=== PATIENT | female | born 1955 | race African-American/Black ===

== ENCOUNTER 2017-02-24 13:21 | Emergency (ER) | payer MEDICAID, SELFPAY ==
[~2017-02-24] VITALS: Ht 162.6 cm; Wt 54.0 kg
[~2017-02-24 13:21] MED LIST: ACET-784 PO; AMLO-512 PO; ASPI1CPM8 PO; BISA5TAB12 PO; FAMO-136 PO; HEP5KI SQ; HYDR-3965 PO; LEVE100S7 PO; LISI-622 PO; LORA2I IM; METO25 PO; MOM30 PO; PHENY100 PO; PRAV40 PO; VITAD400 PO
[2017-02-24 15:23] LABS: BASOPHILS # (AUTO) 0.03 K/uL (0.00-0.20); BASOPHILS % (AUTO) 0.4 % (0.0-2.0); EOSINOPHILS # (AUTO) 0.03 K/uL (0.00-0.70); EOSINOPHILS % (AUTO) 0.39 % (1.0-6.0); HEMATOCRIT 35.3 % (36-46); HEMOGLOBIN 11.8 g/dL (12.0-16.0); LYMPHOCYTES # (AUTO) 1.5 K/uL (1.0-4.8); LYMPHOCYTES % (AUTO) 21.2 % (22.0-44.0); MEAN CORPUSCULAR HEMOGLOBIN 31.4 pg (26.0-34.0); MEAN CORPUSCULAR HGB CONC 33.5 G/dL (31.0-37.0); MEAN CORPUSCULAR VOLUME 94 fL (80-100); MONOCYTES # (AUTO) 0.6 K/uL (0.1-1.0); NEUTROPHILS # (AUTO) 4.9 K/uL (1.8-7.7); PLATELET COUNT (AUTO) 309 K/uL (150-450); RED BLOOD CELL COUNT(AUTO) 3.77 MIL/uL (4.00-5.20); RED CELL DISTRIBUTION WIDTH 14.4 % (11.5-14.5); WHITE BLOOD COUNT (AUTO) 7.1 K/uL (4.5-11.0)
[2017-02-24 15:41] LABS: ANION GAP 11 mmol/L (8-16); CALCIUM, TOTAL 10.4 mg/dL (8.8-10.5); CARBON DIOXIDE 25 mmol/L (22-29); CHLORIDE 108 mmol/L (98-107); CREATININE 1.01 mg/dL (0.60-1.30); GLOMERULAR FILTR. RATE CALC > 60 mL/min (>60); POTASSIUM 5.1 mmol/L (3.5-5.1); SODIUM SERUM 144 mmol/L (136-145); UREA NITROGEN, BLOOD 23 mg/dL (7-18)
[2017-02-24 15:53] LABS: ALANINE AMINOTRANSFERASE 24 U/L (12-78); ALBUMIN 3.8 g/dL (3.4-5.0); ASPARTATE AMINOTRANSFERASE 22 U/L (15-37); BILIRUBIN,TOTAL 0.1 mg/dL (0.1-1.0); TOTAL PROTEIN, SERUM 8.2 g/dL (6.4-8.2)
[2017-02-24 17:39] LABS: APPEARANCE,URINE CLEAR (CLEAR); GLUCOSE, URINE (UA) NEGATIVE (NEGATIVE); KETONES,URINE NEGATIVE (NEGATIVE); LEUKOCYTE ESTERASE ,URINE NEGATIVE (NEGATIVE); OCCULT BLOOD,URINE NEGATIVE (NEGATIVE); PROTEIN,URINE NEGATIVE (NEGATIVE)
[2017-02-24 17:45] LABS: RBC,URINE 0-2 /HPF (0-2); SQUAMOUS EPITHELIAL CELL,UR Few /LPF (None Seen); WBC,URINE 0-2 /HPF (0-5)
[2017-02-24] MEDS ORDERED: LevETIRAcetam 1,000 MG in DEXTROSE 5%-WATER 100 ML IV ONE (20:00)
[2017-02-25 00:34] VITALS: BP 123/82
== END 2017-02-25 00:36 | disposition home or self-care (01) ==
LOC: EMS 13:22
DX: G40.909 Epilepsy, unspecified, not intractable, without status epilepticus (principal); F03.90 Unspecified dementia, unspecified severity, without behavioral disturbance, psychotic disturbance, mood disturbance, and anxiety; I10 Essential (primary) hypertension; E78.00 Pure hypercholesterolemia, unspecified; K21.9 Gastro-esophageal reflux disease without esophagitis; Z86.73 Personal history of transient ischemic attack (TIA), and cerebral infarction without residual deficits; F20.9 Schizophrenia, unspecified; Z79.82 Long term (current) use of aspirin
CPT/HCPCS: 36415; 51702; 70450; 71010; 80053; 80185; 81001; 85025; 93005; 96365; 99291; J0712; J7060

== ENCOUNTER 2017-04-16 12:46 | Emergency (ER) | payer MEDICAID ==
[~2017-04-16] VITALS: Ht 162.6 cm; Wt 50.0 kg
[2017-04-16] MEDS ORDERED: SIMV-259 PO (13:04)
[2017-04-16 13:30] LABS: BASOPHILS % (AUTO) 0.6 % (0.0-2.0); EOSINOPHILS % (AUTO) 1.5 % (1.0-6.0); HEMATOCRIT 39.3 % (36-46); HEMOGLOBIN 12.3 g/dL (12.0-16.0); LYMPHOCYTES # (AUTO) 1.6 K/uL (1.0-4.8); LYMPHOCYTES % (AUTO) 40.1 % (22.0-44.0); MEAN CORPUSCULAR HEMOGLOBIN 30.2 pg (26.0-34.0); MEAN CORPUSCULAR HGB CONC 31.4 G/dL (31.0-37.0); MEAN CORPUSCULAR VOLUME 96 fL (80-100); MONOCYTES # (AUTO) 0.3 K/uL (0.1-1.0); MONOCYTES % (AUTO) 8.1 % (2.0-9.0); NEUTROPHILS % (AUTO) 49.7 % (40.0-70.0); PLATELET COUNT (AUTO) 313 K/uL (150-450); RED BLOOD CELL COUNT(AUTO) 4.09 MIL/uL (4.00-5.20); RED CELL DISTRIBUTION WIDTH 14.1 % (11.5-14.5); WHITE BLOOD COUNT (AUTO) 4.1 K/uL (4.5-11.0)
[2017-04-16 13:45] LABS: ANION GAP 11 mmol/L (8-16); CALCIUM, TOTAL 9.7 mg/dL (8.8-10.5); CARBON DIOXIDE 27 mmol/L (22-29); CHLORIDE 103 mmol/L (98-107); CREATININE 1.31 mg/dL (0.60-1.30); GLOMERULAR FILTR. RATE CALC 50 mL/min (>60); POTASSIUM 4.1 mmol/L (3.5-5.1); SODIUM SERUM 141 mmol/L (136-145); UREA NITROGEN, BLOOD 25 mg/dL (7-18)
[2017-04-16 13:47] LABS: ADD UA MICROSCOPIC YES; APPEARANCE,URINE CLOUDY (CLEAR); GLUCOSE, URINE (UA) NEGATIVE (NEGATIVE); KETONES,URINE NEGATIVE (NEGATIVE); LEUKOCYTE ESTERASE ,URINE SMALL (NEGATIVE); OCCULT BLOOD,URINE NEGATIVE (NEGATIVE); PROTEIN,URINE NEGATIVE (NEGATIVE)
[2017-04-16 13:48] LABS: ALANINE AMINOTRANSFERASE 26 U/L (12-78); ALBUMIN 4.1 g/dL (3.4-5.0); ASPARTATE AMINOTRANSFERASE 15 U/L (15-37); BILIRUBIN,TOTAL 0.2 mg/dL (0.1-1.0); TOTAL PROTEIN, SERUM 8.4 g/dL (6.4-8.2); VALPROIC ACID < 3 mcg/mL (50-100)
[2017-04-16 13:50] LABS: RBC,URINE None Seen /HPF (0-2)
[2017-04-16 13:51] LABS: SQUAMOUS EPITHELIAL CELL,UR Moderate /LPF (None Seen)
[2017-04-16] MEDS ORDERED: PHENYTOIN SODIUM 100 MG in SODIUM CHLORIDE 0.9% 100 ML IV ONE (14:45)
[2017-04-16] MEDS ORDERED: LevETIRAcetam 1,000 MG in DEXTROSE 5%-WATER 100 ML IV ONE (14:45)
[2017-04-16 18:25] VITALS: BP 112/81
== END 2017-04-16 18:29 | disposition home or self-care (01) ==
LOC: EMS 12:51
DX: G40.89 Other seizures (principal); I10 Essential (primary) hypertension; E78.00 Pure hypercholesterolemia, unspecified; K21.9 Gastro-esophageal reflux disease without esophagitis
CPT/HCPCS: 36415; 51702; 70450; 80053; 80164; 80185; 81001; 82962; 85025; 87077; 87086; 87186; 93005; 96365; 96366; 96368; 99285; J0712; J1165; J7050; J7060

== ENCOUNTER 2017-09-30 05:48 | Inpatient (IN) | payer MEDICAID ==
[~2017-09-30] VITALS: Ht 157.5 cm; Wt 49.7 kg
[~2017-09-30 05:48] MED LIST changes: -PRAV40 PO; +PRAV40TA4 PO; +SIMV-259 PO
[2017-09-30] MEDS ORDERED: DSS100 PO (05:55)
[2017-09-30] MEDS ORDERED: LORazepam 2 MG/ML VIAL ONE (06:21)
[2017-09-30 06:30] LABS: EOSINOPHILS % (AUTO) 0.4 % (1.0-6.0); HEMATOCRIT 38.3 % (36-46); LYMPHOCYTES # (AUTO) 0.9 K/uL (1.0-4.8); LYMPHOCYTES % (AUTO) 28.9 % (22.0-44.0); MEAN CORPUSCULAR HEMOGLOBIN 32.1 pg (26.0-34.0); MEAN CORPUSCULAR VOLUME 94 fL (80-100); MONOCYTES # (AUTO) 0.2 K/uL (0.1-1.0); MONOCYTES % (AUTO) 7.1 % (2.0-9.0); NEUTROPHILS # (AUTO) 2.1 K/uL (1.8-7.7); NEUTROPHILS % (AUTO) 62.6 % (40.0-70.0); PLATELET COUNT (AUTO) 307 K/uL (150-450); RED BLOOD CELL COUNT(AUTO) 4.05 MIL/uL (4.00-5.20)
[2017-09-30] MEDS ORDERED: LORazepam 2 MG/ML VIAL IVP ONE ×2 (06:30→07:45)
[2017-09-30 06:41] LABS: ANION GAP 6 mmol/L (8-16); CALCIUM, TOTAL 9.2 mg/dL (8.8-10.5); CARBON DIOXIDE 27 mmol/L (22-29); CHLORIDE 103 mmol/L (98-107); GLOMERULAR FILTR. RATE CALC > 60 mL/min (>60); GLUCOSE,RANDOM 101 mg/dL (70-110); POTASSIUM 5.2 mmol/L (3.5-5.1); SODIUM SERUM 136 mmol/L (136-145); UREA NITROGEN, BLOOD 18 mg/dL (7-18)
[2017-09-30 06:47] LABS: ALANINE AMINOTRANSFERASE 29 U/L (12-78); ALKALINE PHOSPHATASE 88 U/L (46-116); ASPARTATE AMINOTRANSFERASE 33 U/L (15-37); BILIRUBIN,TOTAL 0.3 mg/dL (0.1-1.0); PHENYTOIN (DILANTIN) 18.9 mcg/mL (10.0-20.0); TOTAL PROTEIN, SERUM 8.4 g/dL (6.4-8.2)
[2017-09-30 06:51] LABS: VALPROIC ACID < 3 mcg/mL (50-100)
[2017-09-30 06:59] LABS: AMPHET/METH SCREEN,URINE NEGATIVE (NEGATIVE); BARBITURATE SCREEN, URINE NEGATIVE (NEGATIVE); BENZODIAZEPINES SCREEN,URINE POSITIVE (NEGATIVE); CANNABINOID SCREEN,URINE NEGATIVE (NEGATIVE); COCAINE SCREEN,URINE NEGATIVE (NEGATIVE); METHADONE SCREEN, URINE NEGATIVE (NEGATIVE); OPIATE SCREEN,URINE NEGATIVE (NEGATIVE)
[2017-09-30 07:02] LABS: PHENCYCLIDINE SCREEN,URINE NEGATIVE (NEGATIVE)
[2017-09-30 07:03] LABS: APPEARANCE,URINE CLEAR (CLEAR); BILIRUBIN,URINE NEGATIVE (NEGATIVE); GLUCOSE, URINE (UA) NEGATIVE (NEGATIVE); KETONES,URINE NEGATIVE (NEGATIVE); LEUKOCYTE ESTERASE ,URINE NEGATIVE (NEGATIVE); NITRATE,URINE NEGATIVE (NEGATIVE); OCCULT BLOOD,URINE NEGATIVE (NEGATIVE); PH,URINE 5.5 (5.0-8.0); PROTEIN,URINE NEGATIVE (NEGATIVE); UROBILINOGEN,URINE 0.2 mg/dL (<=1.0)
[2017-09-30 07:17] LABS: BACTERIA,URINE Rare /HPF (None Seen); RBC,URINE None Seen /HPF (0-2); SQUAMOUS EPITHELIAL CELL,UR Few /LPF (None Seen); WBC,URINE 0-2 /HPF (0-5)
[2017-09-30] MEDS ORDERED: METOPROLOL TARTRATE 5 MG/5 ML VIAL IVP ONE (07:45)
[2017-09-30] MEDS ORDERED: VALPROATE SODIUM 750 MG in DEXTROSE 5%-WATER 100 ML IV ONE (07:45)
[2017-09-30] MEDS ORDERED: LORazepam 2 MG/ML VIAL IVP PRN (09:45)
[2017-09-30] MEDS ORDERED: OxyCODONE HCL/ACETAMINOPHEN 5-325 MG TABLET PO PRN (09:45)
[2017-09-30] MEDS ORDERED: MAGNESIUM HYDROXIDE SUSPENSION 30 ML UDCUP PO PRN (09:45)
[2017-09-30] MEDS ORDERED: ACETAMINOPHEN 325 MG TABLET PO PRN (09:45)
[2017-09-30] MEDS ORDERED: ALBUTEROL SULFATE 2.5 MG/0.5 ML NEB SOLUTION NEB PRN (09:45)
[2017-09-30] MEDS ORDERED: DEXTROSE 5%-0.45% SODIUM CHL 1,000 ML IV ONE (10:00)
[2017-09-30] MEDS: LevETIRAcetam 1,000 MG in DEXTROSE 5%-WATER 100 ML IV SCH ×2 (10:03→22:04)
[2017-09-30 14:15] VITALS: BP 127/90
[2017-09-30 15:01] VITALS: BP 129/92
[2017-09-30] MEDS ORDERED: HEPARIN SODIUM,PORCINE 5,000 UNITS/ML VIAL SQ SCH (16:00)
[2017-09-30] MEDS: HEPARIN SODIUM,PORCINE 5,000 UNITS/ML VIAL SQ SCH ×2 (16:17→20:45)
[2017-09-30 19:49] VITALS: BP 123/70
[2017-09-30] MEDS: ASPIRIN/DIPYRIDAMOLE ER 25/200 MG ER CAPSULE PO SCH (20:45)
[2017-09-30] MEDS: ATORVASTATIN CALCIUM 20 MG TABLET PO SCH (20:45)
[2017-09-30] MEDS: PHENYTOIN 100 MG/4 ML SUSPENSION UDCUP PO SCH (20:45)
[2017-09-30] MEDS: DOCUSATE SODIUM 100 MG CAPSULE PO SCH (20:45)
[2017-09-30 23:55] VITALS: BP 106/73
[2017-10-01 04:42] VITALS: BP 123/91
[2017-10-01 07:15] LABS: ANION GAP 7 mmol/L (8-16); BASOPHILS % (AUTO) 0.5 % (0.0-2.0); CALCIUM, TOTAL 8.7 mg/dL (8.8-10.5); CARBON DIOXIDE 26 mmol/L (22-29); CHLORIDE 102 mmol/L (98-107); CREATININE 1.03 mg/dL (0.60-1.30); EOSINOPHILS % (AUTO) 1.1 % (1.0-6.0); GLOMERULAR FILTR. RATE CALC > 60 mL/min (>60); GLUCOSE,RANDOM 111 mg/dL (70-110); HEMATOCRIT 33.2 % (36-46); HEMOGLOBIN 11.2 g/dL (12.0-16.0); LYMPHOCYTES # (AUTO) 1.2 K/uL (1.0-4.8); MEAN CORPUSCULAR HEMOGLOBIN 31.9 pg (26.0-34.0); MEAN CORPUSCULAR HGB CONC 33.6 G/dL (31.0-37.0); MEAN CORPUSCULAR VOLUME 95 fL (80-100); MONOCYTES # (AUTO) 0.6 K/uL (0.1-1.0); MONOCYTES % (AUTO) 12.3 % (2.0-9.0); NEUTROPHILS % (AUTO) 61.1 % (40.0-70.0); PLATELET COUNT (AUTO) 312 K/uL (150-450); POTASSIUM 3.6 mmol/L (3.5-5.1); SODIUM SERUM 135 mmol/L (136-145); UREA NITROGEN, BLOOD 15 mg/dL (7-18)
[2017-10-01 07:45] VITALS: BP 144/89
[2017-10-01] MEDS: PANTOPRAZOLE SODIUM 40 MG/VIAL IVP SCH (08:15)
[2017-10-01] MEDS: HEPARIN SODIUM,PORCINE 5,000 UNITS/ML VIAL SQ SCH ×2 (08:15→20:39)
[2017-10-01] MEDS: DOCUSATE SODIUM 100 MG CAPSULE PO SCH ×2 (08:15→20:39)
[2017-10-01] MEDS: ASPIRIN/DIPYRIDAMOLE ER 25/200 MG ER CAPSULE PO SCH ×2 (08:15→20:39)
[2017-10-01] MEDS: LevETIRAcetam 1,000 MG in DEXTROSE 5%-WATER 100 ML IV SCH ×2 (10:12→22:40)
[2017-10-01 11:43] VITALS: BP 138/78
[2017-10-01] MEDS ORDERED: LEVE500T53 PO (13:19)
[2017-10-01] MEDS ORDERED: ASPIRIN 81 MG CHEWABLE TABLET PO SCH (13:30)
[2017-10-01 15:37] VITALS: BP 113/72
[2017-10-01 19:34] VITALS: BP 94/62
[2017-10-01] MEDS: PHENYTOIN 100 MG/4 ML SUSPENSION UDCUP PO SCH (20:39)
[2017-10-01] MEDS: ATORVASTATIN CALCIUM 20 MG TABLET PO SCH (20:40)
[2017-10-01] MEDS ORDERED: ATORVASTATIN CALCIUM 20 MG TABLET PO SCH (21:00)
[2017-10-01 23:33] VITALS: BP 106/69
[2017-10-02 04:31] VITALS: BP 108/56
[2017-10-02 07:24] VITALS: BP 115/74
[2017-10-02] MEDS: DOCUSATE SODIUM 100 MG CAPSULE PO SCH (08:58)
[2017-10-02] MEDS: ASPIRIN/DIPYRIDAMOLE ER 25/200 MG ER CAPSULE PO SCH (08:58)
[2017-10-02] MEDS: PANTOPRAZOLE SODIUM 40 MG/VIAL IVP SCH (08:58)
[2017-10-02] MEDS: HEPARIN SODIUM,PORCINE 5,000 UNITS/ML VIAL SQ SCH (08:58)
[2017-10-02] MEDS: LevETIRAcetam 1,000 MG in DEXTROSE 5%-WATER 100 ML IV SCH (09:27)
[2017-10-02 11:42] VITALS: BP 100/73
== END 2017-10-02 15:55 | DRG 53 ==
LOC: EMS 05:50 → 5S 13:05 → UNDOADMIN 13:05 → 5S 13:23
PROVIDERS: ADMIT Internal Medicine; ATTEND Internal Medicine
DX: G40.909 Epilepsy, unspecified, not intractable, without status epilepticus (principal); E44.0 Moderate protein-calorie malnutrition; F03.90 Unspecified dementia, unspecified severity, without behavioral disturbance, psychotic disturbance, mood disturbance, and anxiety; F20.9 Schizophrenia, unspecified; I69.354 Hemiplegia and hemiparesis following cerebral infarction affecting left non-dominant side; F17.210 Nicotine dependence, cigarettes, uncomplicated; I10 Essential (primary) hypertension; K21.9 Gastro-esophageal reflux disease without esophagitis; Z86.718 Personal history of other venous thrombosis and embolism; Z68.20 Body mass index [BMI] 20.0-20.9, adult; Z79.82 Long term (current) use of aspirin; Z82.49 Family history of ischemic heart disease and other diseases of the circulatory system; Z74.01 Bed confinement status
CPT/HCPCS: 51702; 70450; 83605; 87081; 93005; 96365; 96366; 96375; 96376; 97162; 97530; 99291; C9113; J0712; J1644; J2060; J3490; J7060

== ENCOUNTER 2017-11-09 13:23 | Inpatient (IN) | payer MEDICAID ==
[~2017-11-09] VITALS: Ht 167.6 cm; Wt 47.0 kg
[~2017-11-09 13:23] MED LIST changes: -AMLO-512 PO; +DSS100 PO; -LEVE100S7 PO; +LEVE500T53 PO; -LISI-622 PO; -METO25 PO
[2017-11-09] MEDS ORDERED: PHENYTOIN SODIUM 1,000 MG in SODIUM CHLORIDE 0.9% 150 ML IV ONE (13:30)
[2017-11-09] MEDS ORDERED: IPRA3AMP4 IH (13:47)
[2017-11-09] MEDS ORDERED: PERCT PO (13:47)
[2017-11-09 13:49] LABS: ABG A-A DIFF O2 206.6 mmHg (10-20.0); ABG BASE EXCESS 1.6 mmol/L (-2.0-3.0); ABG HCO3 25.6 mmol/L (22.0-26.0); ABG PCO2 47 mmHg (35-45); ABG PH 7.377 (7.35-7.450); TEMPERATURE, FAHRENHEIT, BG 98.6 FAHREN (96.0-98.6)
[2017-11-09 13:51] LABS: ALLEN TEST, BLOOD GAS Positive
[2017-11-09] MEDS ORDERED: SODIUM CHLORIDE 0.9% 1,000 ML IV ONE ×2 (14:07→14:30)
[2017-11-09] MEDS ORDERED: LORazepam 2 MG/ML VIAL ONE (14:10)
[2017-11-09 14:21] LABS: BASOPHILS # (AUTO) 0.02 K/uL (0.00-0.20); BASOPHILS % (AUTO) 0.4 % (0.0-2.0); EOSINOPHILS # (AUTO) 0.05 K/uL (0.00-0.70); EOSINOPHILS % (AUTO) 0.99 % (1.0-6.0); HEMATOCRIT 40.1 % (36-46); LYMPHOCYTES # (AUTO) 1.1 K/uL (1.0-4.8); LYMPHOCYTES % (AUTO) 19.8 % (22.0-44.0); MEAN CORPUSCULAR HEMOGLOBIN 31.7 pg (26.0-34.0); MEAN CORPUSCULAR HGB CONC 32.4 G/dL (31.0-37.0); MEAN CORPUSCULAR VOLUME 98 fL (80-100); MONOCYTES # (AUTO) 0.5 K/uL (0.1-1.0); MONOCYTES % (AUTO) 8.9 % (2.0-9.0); NEUTROPHILS # (AUTO) 3.9 K/uL (1.8-7.7); PLATELET COUNT (AUTO) 268 K/uL (150-450); RED BLOOD CELL COUNT(AUTO) 4.09 MIL/uL (4.00-5.20); RED CELL DISTRIBUTION WIDTH 14.1 % (11.5-14.5); WHITE BLOOD COUNT (AUTO) 5.5 K/uL (4.5-11.0)
[2017-11-09 14:33] LABS: ANION GAP 9 mmol/L (8-16); CALCIUM, TOTAL 9.5 mg/dL (8.8-10.5); CARBON DIOXIDE 27 mmol/L (22-29); CHLORIDE 106 mmol/L (98-107); CREATININE 1.14 mg/dL (0.60-1.30); GLOMERULAR FILTR. RATE CALC 58 mL/min (>60); POTASSIUM 3.9 mmol/L (3.5-5.1); SODIUM SERUM 142 mmol/L (136-145); UREA NITROGEN, BLOOD 23 mg/dL (7-18)
[2017-11-09 14:42] LABS: ALANINE AMINOTRANSFERASE 32 U/L (12-78); ALBUMIN 3.7 g/dL (3.4-5.0); ASPARTATE AMINOTRANSFERASE 22 U/L (15-37); BILIRUBIN,TOTAL 0.2 mg/dL (0.1-1.0); TOTAL PROTEIN, SERUM 8.4 g/dL (6.4-8.2); VALPROIC ACID 4 mcg/mL (50-100)
[2017-11-09] MEDS ORDERED: LORazepam 2 MG/ML VIAL IVP ONE (14:45)
[2017-11-09] MEDS ORDERED: LEVOFLOXACIN 750 MG/D5% WATER 150 ML IV ONE (15:15)
[2017-11-09] MEDS ORDERED: 0.9% SODIUM CHLORIDE 10 ML SYRINGE IVP PRN (17:15)
[2017-11-09] MEDS ORDERED: ONDANSETRON HCL 4 MG/2 ML VIAL IVP PRN ×2 (17:15→22:00)
[2017-11-09] MEDS ORDERED: ACETAMINOPHEN 325 MG TABLET PO PRN ×2 (17:15→22:00)
[2017-11-09] MEDS ORDERED: MORPHINE SULFATE 2 MG/ML SYRINGE IVP PRN (22:00)
[2017-11-09] MEDS ORDERED: ZOLPIDEM TARTRATE 5 MG TABLET PO PRN (22:00)
[2017-11-09] MEDS ORDERED: MAGNESIUM HYDROXIDE SUSPENSION 30 ML UDCUP PO PRN (22:00)
[2017-11-09] MEDS ORDERED: HYDROCODONE/ACETAMINOPHEN 5-325 MG TABLET PO PRN (22:00)
[2017-11-09] MEDS: LevETIRAcetam 1,000 MG in DEXTROSE 5%-WATER 100 ML IV SCH (22:00)
[2017-11-09] MEDS ORDERED: LORazepam 2 MG/ML VIAL IM PRN (22:00)
[2017-11-09] MEDS ORDERED: BISACODYL 10 MG RECTAL RECTAL SUPPOSITORY PR PRN (22:00)
[2017-11-09] MEDS ORDERED: MISC MED-CONVERTED FROM AMBULATORY (Ipratropium/Albuterol Sulfate (Ipratr-Albuterol 0.5-3 IH SCH (22:00)
[2017-11-09] MEDS ORDERED: ALBUTEROL SULFATE 2.5 MG/0.5 ML NEB SOLUTION NEB PRN (22:15)
[2017-11-09] MEDS ORDERED: IPRATROPIUM BROMIDE 0.5 MG/2.5 ML NEB SOLUTION NEB PRN (22:15)
[2017-11-10 00:32] VITALS: BP 135/87
[2017-11-10] MEDS: HEPARIN SODIUM,PORCINE 5,000 UNITS/ML VIAL SQ SCH ×4 (00:55→23:51)
[2017-11-10] MEDS ORDERED: ASPI1CPM8 PO (01:49)
[2017-11-10] MEDS ORDERED: ATOR20TA86 PO (01:56)
[2017-11-10] MEDS ORDERED: MULT-248 PO (01:56)
[2017-11-10] MEDS ORDERED: BISA10S PR (01:56)
[2017-11-10 04:38] VITALS: BP 121/86
[2017-11-10 06:14] LABS: BASOPHILS % (AUTO) 0.7 % (0.0-2.0); EOSINOPHILS % (AUTO) 0.8 % (1.0-6.0); HEMATOCRIT 36.5 % (36-46); HEMOGLOBIN 12.3 g/dL (12.0-16.0); LYMPHOCYTES # (AUTO) 1.4 K/uL (1.0-4.8); LYMPHOCYTES % (AUTO) 25.4 % (22.0-44.0); MEAN CORPUSCULAR HEMOGLOBIN 32.6 pg (26.0-34.0); MEAN CORPUSCULAR HGB CONC 33.8 G/dL (31.0-37.0); MEAN CORPUSCULAR VOLUME 96 fL (80-100); MONOCYTES # (AUTO) 0.5 K/uL (0.1-1.0); MONOCYTES % (AUTO) 10.2 % (2.0-9.0); NEUTROPHILS # (AUTO) 3.4 K/uL (1.8-7.7); NEUTROPHILS % (AUTO) 62.9 % (40.0-70.0); PLATELET COUNT (AUTO) 232 K/uL (150-450); RED BLOOD CELL COUNT(AUTO) 3.79 MIL/uL (4.00-5.20); RED CELL DISTRIBUTION WIDTH 13.9 % (11.5-14.5); WHITE BLOOD COUNT (AUTO) 5.4 K/uL (4.5-11.0)
[2017-11-10 06:46] LABS: ALANINE AMINOTRANSFERASE 27 U/L (12-78); ALBUMIN 3.2 g/dL (3.4-5.0); ANION GAP 12 mmol/L (8-16); ASPARTATE AMINOTRANSFERASE 23 U/L (15-37); BILIRUBIN,TOTAL 0.2 mg/dL (0.1-1.0); CALCIUM, TOTAL 8.9 mg/dL (8.8-10.5); CARBON DIOXIDE 24 mmol/L (22-29); CHLORIDE 105 mmol/L (98-107); CREATININE 1.06 mg/dL (0.60-1.30); GLOMERULAR FILTR. RATE CALC > 60 mL/min (>60); POTASSIUM 4.1 mmol/L (3.5-5.1); SODIUM SERUM 141 mmol/L (136-145); TOTAL PROTEIN, SERUM 7.4 g/dL (6.4-8.2); UREA NITROGEN, BLOOD 17 mg/dL (7-18)
[2017-11-10 07:21] VITALS: BP 150/83
[2017-11-10] MEDS: DOCUSATE SODIUM 100 MG CAPSULE PO SCH ×3 (08:24→21:46)
[2017-11-10] MEDS: PANTOPRAZOLE SODIUM 40 MG DR TABLET PO SCH ×2 (08:25→08:45)
[2017-11-10] MEDS: CHOLECALCIFEROL (VIT D3) 400 UNITS TABLET PO SCH (08:25)
[2017-11-10] MEDS ORDERED: SODIUM CHLORIDE 0.9% 100 ML ONE ×2 (10:29→21:39)
[2017-11-10] MEDS: LevETIRAcetam 1,000 MG in DEXTROSE 5%-WATER 100 ML IV SCH (10:33)
[2017-11-10 11:17] VITALS: BP 138/94
[2017-11-10] MEDS ORDERED: LIDOCAINE HCL 5% TRANSDERMAL PATCH TD SCH (12:00)
[2017-11-10 15:42] VITALS: BP 142/89
[2017-11-10 20:13] VITALS: BP 121/77
[2017-11-10] MEDS ORDERED: -LIDODERM PATCH NOTE- MISC SCH ×2 (21:00)
[2017-11-10] MEDS ORDERED: ASPIRIN/DIPYRIDAMOLE ER 25/200 MG ER CAPSULE PO SCH (21:00)
[2017-11-10] MEDS: LevETIRAcetam 1,500 MG in DEXTROSE 5%-WATER 100 ML IV SCH (21:30)
[2017-11-10] MEDS: PHENYTOIN SODIUM 100 MG ER CAPSULE PO SCH (21:45)
[2017-11-10] MEDS: ASPIRIN/DIPYRIDAMOLE ER 25/200 MG ER CAPSULE PO SCH (21:45)
[2017-11-11 00:30] VITALS: BP 123/80
[2017-11-11 05:03] VITALS: BP 124/79
[2017-11-11 07:18] VITALS: BP 127/82
[2017-11-11] MEDS: HEPARIN SODIUM,PORCINE 5,000 UNITS/ML VIAL SQ SCH ×2 (08:22→15:27)
[2017-11-11] MEDS: DOCUSATE SODIUM 100 MG CAPSULE PO SCH ×2 (08:23→21:10)
[2017-11-11] MEDS: PANTOPRAZOLE SODIUM 40 MG DR TABLET PO SCH (08:23)
[2017-11-11] MEDS: ASPIRIN/DIPYRIDAMOLE ER 25/200 MG ER CAPSULE PO SCH ×2 (08:23→21:10)
[2017-11-11] MEDS: CHOLECALCIFEROL (VIT D3) 400 UNITS TABLET PO SCH (08:23)
[2017-11-11] MEDS: LevETIRAcetam 1,500 MG in DEXTROSE 5%-WATER 100 ML IV SCH ×2 (08:23→21:10)
[2017-11-11] MEDS: PHENYTOIN SODIUM 100 MG ER CAPSULE PO SCH (08:49)
[2017-11-11 11:07] VITALS: BP 135/75
[2017-11-11 15:17] VITALS: BP 124/76
[2017-11-11 20:02] VITALS: BP 119/84
[2017-11-12 00:57] VITALS: BP 123/80
[2017-11-12] MEDS: HEPARIN SODIUM,PORCINE 5,000 UNITS/ML VIAL SQ SCH ×4 (01:25→15:49)
[2017-11-12 04:53] VITALS: BP 130/86
[2017-11-12 07:33] VITALS: BP 126/73
[2017-11-12] MEDS: DOCUSATE SODIUM 100 MG CAPSULE PO SCH ×3 (09:00→21:09)
[2017-11-12] MEDS: CHOLECALCIFEROL (VIT D3) 400 UNITS TABLET PO SCH ×2 (09:00→10:19)
[2017-11-12] MEDS: PANTOPRAZOLE SODIUM 40 MG DR TABLET PO SCH ×2 (09:00→10:19)
[2017-11-12] MEDS: ASPIRIN/DIPYRIDAMOLE ER 25/200 MG ER CAPSULE PO SCH ×3 (09:00→21:09)
[2017-11-12] MEDS: LevETIRAcetam 1,500 MG in DEXTROSE 5%-WATER 100 ML IV SCH ×2 (10:18→21:09)
[2017-11-12 11:18] VITALS: BP 109/74
[2017-11-12 15:21] VITALS: BP 119/79
[2017-11-12] MEDS ORDERED: PANT40TA25 PO (18:41)
[2017-11-12] MEDS ORDERED: LEVE500T53 PO (18:41)
[2017-11-12] MEDS ORDERED: MUPI1OIN4 NS (18:42)
[2017-11-12 20:18] VITALS: BP 105/74
[2017-11-12] MEDS: PHENYTOIN SODIUM 100 MG ER CAPSULE PO SCH (21:09)
[2017-11-12] MEDS: MUPIROCIN CALCIUM 2% 22 GM OINTMENT NASAL SCH (21:09)
[2017-11-13 00:21] VITALS: BP 116/88
[2017-11-13] MEDS: HEPARIN SODIUM,PORCINE 5,000 UNITS/ML VIAL SQ SCH ×2 (01:13→08:12)
[2017-11-13 04:17] VITALS: BP 124/82
[2017-11-13 07:35] VITALS: BP 122/84
[2017-11-13] MEDS: DOCUSATE SODIUM 100 MG CAPSULE PO SCH (08:12)
[2017-11-13] MEDS: PANTOPRAZOLE SODIUM 40 MG DR TABLET PO SCH (08:12)
[2017-11-13] MEDS: MUPIROCIN CALCIUM 2% 22 GM OINTMENT NASAL SCH (08:12)
[2017-11-13] MEDS: ASPIRIN/DIPYRIDAMOLE ER 25/200 MG ER CAPSULE PO SCH (08:12)
[2017-11-13] MEDS: LevETIRAcetam 1,500 MG in DEXTROSE 5%-WATER 100 ML IV SCH (08:12)
[2017-11-13] MEDS: CHOLECALCIFEROL (VIT D3) 400 UNITS TABLET PO SCH (08:12)
== END 2017-11-13 10:00 | DRG 52 ==
LOC: EMS 13:26 → 5S 23:47
PROVIDERS: ADMIT Internal Medicine; ATTEND Internal Medicine
DX: G93.41 Metabolic encephalopathy (principal); F20.9 Schizophrenia, unspecified; F03.90 Unspecified dementia, unspecified severity, without behavioral disturbance, psychotic disturbance, mood disturbance, and anxiety; G40.901 Epilepsy, unspecified, not intractable, with status epilepticus; K21.9 Gastro-esophageal reflux disease without esophagitis; E78.00 Pure hypercholesterolemia, unspecified; I10 Essential (primary) hypertension; J98.11 Atelectasis; T42.0X5A Adverse effect of hydantoin derivatives, initial encounter; Z87.891 Personal history of nicotine dependence; Z22.322 Carrier or suspected carrier of Methicillin resistant Staphylococcus aureus
CPT/HCPCS: 70450; 82805; 87040; 87081; 92526; 92610; 93005; 96365; 96367; 96375; 99291; G0480; G0482; J0712; J1165; J1644; J1956; J2060; J7030; J7050; J7060

== ENCOUNTER 2018-04-12 09:38 | Inpatient (IN) | payer MEDICAID, SELFPAY ==
[~2018-04-12] VITALS: Ht 160 cm; Wt 42.0 kg
[~2018-04-12 09:38] MED LIST changes: +ATOR20TA86 PO; +BISA10S PR; -BISA5TAB12 PO; -FAMO-136 PO; -HYDR-3965 PO; +IPRA3AMP4 IH; -LORA2I IM; +MULT-248 PO; +MUPI1OIN4 NS; +PANT40TA25 PO; -PRAV40TA4 PO; -SIMV-259 PO
[2018-04-12] MEDS ORDERED: LevETIRAcetam 500 MG in DEXTROSE 5%-WATER 100 ML IV ONE (10:00)
[2018-04-12] MEDS ORDERED: LORazepam 2 MG/ML VIAL ONE (10:09)
[2018-04-12] MEDS ORDERED: LORazepam 2 MG/ML VIAL IVP ONE ×2 (10:15→10:45)
[2018-04-12 10:20] LABS: BASOPHILS % (AUTO) 0.4 % (0.0-2.0); EOSINOPHILS % (AUTO) 0.1 % (1.0-6.0); HEMATOCRIT 35.1 % (36-46); HEMOGLOBIN 12.1 g/dL (12.0-16.0); LYMPHOCYTES # (AUTO) 0.6 K/uL (1.0-4.8); LYMPHOCYTES % (AUTO) 6.9 % (22.0-44.0); MEAN CORPUSCULAR HEMOGLOBIN 31.4 pg (26.0-34.0); MEAN CORPUSCULAR HGB CONC 34.5 G/dL (31.0-37.0); MEAN CORPUSCULAR VOLUME 91 fL (80-100); MONOCYTES # (AUTO) 0.5 K/uL (0.1-1.0); MONOCYTES % (AUTO) 5.3 % (2.0-9.0); NEUTROPHILS # (AUTO) 8.1 K/uL (1.8-7.7); PLATELET COUNT (AUTO) 320 K/uL (150-450); RED BLOOD CELL COUNT(AUTO) 3.86 MIL/uL (4.00-5.20); RED CELL DISTRIBUTION WIDTH 13.7 % (11.5-14.5)
[2018-04-12 10:21] LABS: NEUTROPHILS % (AUTO) 87.3 % (40.0-70.0)
[2018-04-12 10:31] LABS: INR 1.1 (0.9-1.1); PROTHROMBIN TIME 11.2 SEC (9.4-11.6)
[2018-04-12 10:32] LABS: ANION GAP 6 mmol/L (8-16); CARBON DIOXIDE 29 mmol/L (22-29); CHLORIDE 103 mmol/L (98-107); CREATININE 0.93 mg/dL (0.60-1.30); GLOMERULAR FILTR. RATE CALC > 60 mL/min (>60); GLUCOSE,RANDOM 116 mg/dL (70-110); POTASSIUM 3.2 mmol/L (3.5-5.1); SODIUM SERUM 138 mmol/L (136-145); UREA NITROGEN, BLOOD 13 mg/dL (7-18)
[2018-04-12 10:42] LABS: ALANINE AMINOTRANSFERASE 39 U/L (12-78); ALBUMIN 3.3 g/dL (3.4-5.0); ALKALINE PHOSPHATASE 87 U/L (46-116); ASPARTATE AMINOTRANSFERASE 23 U/L (15-37); BILIRUBIN,TOTAL 0.2 mg/dL (0.1-1.0); CREATINE KINASE, TOTAL 65 U/L (26-192); TOTAL PROTEIN, SERUM 7.2 g/dL (6.4-8.2)
[2018-04-12 10:49] LABS: AMPHET/METH SCREEN,URINE NEGATIVE (NEGATIVE); BARBITURATE SCREEN, URINE NEGATIVE (NEGATIVE); BENZODIAZEPINES SCREEN,URINE POSITIVE (NEGATIVE); CANNABINOID SCREEN,URINE NEGATIVE (NEGATIVE); COCAINE SCREEN,URINE NEGATIVE (NEGATIVE); METHADONE SCREEN, URINE NEGATIVE (NEGATIVE); OPIATE SCREEN,URINE NEGATIVE (NEGATIVE)
[2018-04-12 10:51] LABS: B-TYPE NATRIURETIC PEPTIDE 94 pg/mL (0-100)
[2018-04-12 10:54] LABS: PHENCYCLIDINE SCREEN,URINE NEGATIVE (NEGATIVE)
[2018-04-12] MEDS ORDERED: ACETAMINOPHEN 1000 MG/ISO-OSM 100 ML IV ONE (11:30)
[2018-04-12] MEDS ORDERED: METOPROLOL TARTRATE 5 MG/5 ML VIAL IVP ONE (11:30)
[2018-04-12] MEDS ORDERED: ACETAMINOPHEN 325 MG TABLET PO PRN ×2 (11:45→17:45)
[2018-04-12] MEDS ORDERED: 0.9% SODIUM CHLORIDE 10 ML SYRINGE IVP PRN (11:45)
[2018-04-12] MEDS ORDERED: ONDANSETRON HCL 4 MG/2 ML VIAL IVP PRN ×2 (11:45→17:45)
[2018-04-12] MEDS ORDERED: SODIUM CHLORIDE 0.9% 1,000 ML IV ONE (12:00)
[2018-04-12] MEDS ORDERED: ASPI-556 PO (15:09)
[2018-04-12] MEDS ORDERED: PHEN125O3 PO (15:09)
[2018-04-12] MEDS ORDERED: LISI10TA7 PO (15:10)
[2018-04-12 16:00] VITALS: BP 134/96
[2018-04-12] MEDS ORDERED: LevETIRAcetam 500 MG in DEXTROSE 5%-WATER 100 ML IV SCH ×2 (17:30→21:00)
[2018-04-12] MEDS ORDERED: BISACODYL 10 MG RECTAL RECTAL SUPPOSITORY PR PRN ×2 (17:30→17:45)
[2018-04-12] MEDS ORDERED: LevETIRAcetam 1,000 MG in DEXTROSE 5%-WATER 100 ML IV SCH ×2 (17:30→21:00)
[2018-04-12] MEDS ORDERED: LORazepam 2 MG/ML VIAL IVP PRN (17:30)
[2018-04-12] MEDS ORDERED: MORPHINE SULFATE 2 MG/ML SYRINGE IVP PRN (17:45)
[2018-04-12] MEDS ORDERED: ALBUTEROL SULFATE 2.5 MG/0.5 ML NEB SOLUTION NEB PRN (17:45)
[2018-04-12] MEDS ORDERED: IPRATROPIUM BROMIDE 0.5 MG/2.5 ML NEB SOLUTION NEB PRN (17:45)
[2018-04-12] MEDS ORDERED: HYDROCODONE/ACETAMINOPHEN 5-325 MG TABLET PO PRN (17:45)
[2018-04-12] MEDS ORDERED: HydrALAZINE HCL 20 MG/ML VIAL IVP PRN (17:45)
[2018-04-12] MEDS ORDERED: MAGNESIUM HYDROXIDE SUSPENSION 30 ML UDCUP PO PRN (17:45)
[2018-04-12] MEDS ORDERED: ZOLPIDEM TARTRATE 5 MG TABLET PO PRN (17:45)
[2018-04-12] MEDS ORDERED: LevETIRAcetam 1,500 MG in DEXTROSE 5%-WATER 100 ML IV SCH (18:30)
[2018-04-12 20:00] VITALS: BP 142/100
[2018-04-12] MEDS: DOCUSATE SODIUM 100 MG CAPSULE PO SCH (21:00)
[2018-04-12] MEDS ORDERED: DOCUSATE SODIUM 100 MG CAPSULE PO SCH (21:00)
[2018-04-12] MEDS ORDERED: LevETIRAcetam 500 MG TABLET PO SCH (21:00)
[2018-04-12] MEDS ORDERED: PHENYTOIN SODIUM 100 MG ER CAPSULE PO SCH (21:00)
[2018-04-12] MEDS: LevETIRAcetam 1,500 MG in DEXTROSE 5%-WATER 100 ML IV SCH (21:04)
[2018-04-13] VITALS (8 sets, daily range): BP systolic 101–152; BP diastolic 69–110
[2018-04-13] MEDS: HEPARIN SODIUM,PORCINE 5,000 UNITS/ML VIAL SQ SCH ×3 (01:08→15:43)
[2018-04-13 05:29] LABS: BASOPHILS % (AUTO) 0.8 % (0.0-2.0); EOSINOPHILS % (AUTO) 0.3 % (1.0-6.0); HEMATOCRIT 38.8 % (36-46); HEMOGLOBIN 13.3 g/dL (12.0-16.0); LYMPHOCYTES # (AUTO) 1.3 K/uL (1.0-4.8); MEAN CORPUSCULAR HEMOGLOBIN 31.4 pg (26.0-34.0); MEAN CORPUSCULAR HGB CONC 34.4 G/dL (31.0-37.0); MEAN CORPUSCULAR VOLUME 91 fL (80-100); MONOCYTES # (AUTO) 0.5 K/uL (0.1-1.0); MONOCYTES % (AUTO) 8.4 % (2.0-9.0); NEUTROPHILS # (AUTO) 4.4 K/uL (1.8-7.7); NEUTROPHILS % (AUTO) 69.5 % (40.0-70.0); PLATELET COUNT (AUTO) 283 K/uL (150-450); RED BLOOD CELL COUNT(AUTO) 4.25 MIL/uL (4.00-5.20); RED CELL DISTRIBUTION WIDTH 13.4 % (11.5-14.5)
[2018-04-13 05:40] LABS: ALANINE AMINOTRANSFERASE 37 U/L (12-78); ALBUMIN 3.3 g/dL (3.4-5.0); ALKALINE PHOSPHATASE 102 U/L (46-116); ANION GAP 10 mmol/L (8-16); ASPARTATE AMINOTRANSFERASE 27 U/L (15-37); BILIRUBIN,TOTAL 0.5 mg/dL (0.1-1.0); CALCIUM, TOTAL 8.4 mg/dL (8.8-10.5); CARBON DIOXIDE 26 mmol/L (22-29); CHLORIDE 103 mmol/L (98-107); CREATININE 0.82 mg/dL (0.60-1.30); GLOMERULAR FILTR. RATE CALC > 60 mL/min (>60); GLUCOSE,RANDOM 88 mg/dL (70-110); POTASSIUM 3.8 mmol/L (3.5-5.1); SODIUM SERUM 139 mmol/L (136-145); TOTAL PROTEIN, SERUM 7.8 g/dL (6.4-8.2); UREA NITROGEN, BLOOD 12 mg/dL (7-18)
[2018-04-13] MEDS: PANTOPRAZOLE SODIUM 40 MG/VIAL IVP SCH (08:38)
[2018-04-13] MEDS: ASPIRIN 81 MG EC TABLET PO SCH (08:38)
[2018-04-13] MEDS: LevETIRAcetam 1,500 MG in DEXTROSE 5%-WATER 100 ML IV SCH ×2 (08:38→21:59)
[2018-04-13] MEDS ORDERED: SODIUM CHLORIDE 0.9% 250 ML IV ONE ×2 (08:45→22:00)
[2018-04-13] MEDS ORDERED: PANTOPRAZOLE SODIUM 40 MG DR TABLET PO SCH (09:00)
[2018-04-13] MEDS: MULTIVITAMINS WITH MINERALS, THERAPEUTIC TABLET PO SCH (09:01)
[2018-04-13] MEDS: DOCUSATE SODIUM 100 MG CAPSULE PO SCH ×2 (09:01→21:59)
[2018-04-13] MEDS: CHOLECALCIFEROL (VIT D3) 400 UNITS TABLET PO SCH (09:01)
[2018-04-13] MEDS: LISINOPRIL 10 MG TABLET PO SCH (09:01)
[2018-04-14] MEDS: HEPARIN SODIUM,PORCINE 5,000 UNITS/ML VIAL SQ SCH ×2 (00:24→08:34)
[2018-04-14 04:24] VITALS: BP 124/84
[2018-04-14 06:59] LABS: BASOPHILS % (AUTO) 0.6 % (0.0-2.0); EOSINOPHILS % (AUTO) 0.9 % (1.0-6.0); HEMOGLOBIN 13.5 g/dL (12.0-16.0); LYMPHOCYTES # (AUTO) 1.3 K/uL (1.0-4.8); LYMPHOCYTES % (AUTO) 25.7 % (22.0-44.0); MEAN CORPUSCULAR HEMOGLOBIN 31.8 pg (26.0-34.0); MEAN CORPUSCULAR HGB CONC 34.7 G/dL (31.0-37.0); MEAN CORPUSCULAR VOLUME 92 fL (80-100); MONOCYTES # (AUTO) 0.5 K/uL (0.1-1.0); MONOCYTES % (AUTO) 9.8 % (2.0-9.0); NEUTROPHILS # (AUTO) 3.1 K/uL (1.8-7.7); PLATELET COUNT (AUTO) 270 K/uL (150-450); RED BLOOD CELL COUNT(AUTO) 4.25 MIL/uL (4.00-5.20); RED CELL DISTRIBUTION WIDTH 13.6 % (11.5-14.5)
[2018-04-14 07:12] LABS: ANION GAP 13 mmol/L (8-16); CALCIUM, TOTAL 8.8 mg/dL (8.8-10.5); CARBON DIOXIDE 25 mmol/L (22-29); CHLORIDE 101 mmol/L (98-107); CREATININE 0.91 mg/dL (0.60-1.30); GLOMERULAR FILTR. RATE CALC > 60 mL/min (>60); GLUCOSE,RANDOM 79 mg/dL (70-110); SODIUM SERUM 139 mmol/L (136-145); UREA NITROGEN, BLOOD 14 mg/dL (7-18)
[2018-04-14 08:04] VITALS: BP 141/98
[2018-04-14] MEDS: DOCUSATE SODIUM 100 MG CAPSULE PO SCH (08:34)
[2018-04-14] MEDS: CHOLECALCIFEROL (VIT D3) 400 UNITS TABLET PO SCH (08:34)
[2018-04-14] MEDS: MULTIVITAMINS WITH MINERALS, THERAPEUTIC TABLET PO SCH (08:34)
[2018-04-14] MEDS: PANTOPRAZOLE SODIUM 40 MG/VIAL IVP SCH (08:34)
[2018-04-14] MEDS: LISINOPRIL 10 MG TABLET PO SCH (08:34)
[2018-04-14] MEDS: ASPIRIN 81 MG EC TABLET PO SCH (08:34)
[2018-04-14] MEDS: LevETIRAcetam 1,500 MG in DEXTROSE 5%-WATER 100 ML IV SCH (08:41)
[2018-04-14 10:29] LABS: PHENYTOIN (DILANTIN) 18.1 mcg/mL (10.0-20.0)
[2018-04-14 11:21] VITALS: BP 145/98
[2018-04-14 15:33] VITALS: BP 128/97
== END 2018-04-14 16:10 | DRG 53 ==
LOC: EMS 09:39 → ICU 12:28 → 5N 04-13 16:20
PROVIDERS: ADMIT Hospitalist; ATTEND Hospitalist
DX: G40.901 Epilepsy, unspecified, not intractable, with status epilepticus (principal); E44.0 Moderate protein-calorie malnutrition; F03.90 Unspecified dementia, unspecified severity, without behavioral disturbance, psychotic disturbance, mood disturbance, and anxiety; F20.9 Schizophrenia, unspecified; I69.351 Hemiplegia and hemiparesis following cerebral infarction affecting right dominant side; K59.00 Constipation, unspecified; I10 Essential (primary) hypertension; E78.5 Hyperlipidemia, unspecified; K21.9 Gastro-esophageal reflux disease without esophagitis; F17.210 Nicotine dependence, cigarettes, uncomplicated; I69.320 Aphasia following cerebral infarction; Z79.899 Other long term (current) drug therapy; Z86.711 Personal history of pulmonary embolism; Z86.718 Personal history of other venous thrombosis and embolism; Z83.3 Family history of diabetes mellitus; Z82.49 Family history of ischemic heart disease and other diseases of the circulatory system; Z80.9 Family history of malignant neoplasm, unspecified; Z68.1 Body mass index [BMI] 19.9 or less, adult
CPT/HCPCS: 70450; 83605; 84145; 87040; 87081; 93005; 95816; 96365; 96367; 96375; 99291; C9113; G0482; J0131; J0360; J0712; J1644; J2060; J3490; J7030; J7050; J7060

== ENCOUNTER 2018-05-27 10:12 | Emergency (ER) | payer MEDICAID ==
[~2018-05-27] VITALS: Ht 165.1 cm; Wt 40.0 kg
[~2018-05-27 10:12] MED LIST changes: +ASPI-556 PO; -ASPI1CPM8 PO; -ATOR20TA86 PO; -HEP5KI SQ; -IPRA3AMP4 IH; +LISI10TA7 PO; -MOM30 PO; -MUPI1OIN4 NS; +PHEN125O3 PO
[2018-05-27 11:02] LABS: BASOPHILS % (AUTO) 0.8 % (0.0-2.0); HEMATOCRIT 35.5 % (36-46); HEMOGLOBIN 12.1 g/dL (12.0-16.0); LYMPHOCYTES # (AUTO) 1.8 K/uL (1.0-4.8); LYMPHOCYTES % (AUTO) 25.6 % (22.0-44.0); MEAN CORPUSCULAR HEMOGLOBIN 31.2 pg (26.0-34.0); MEAN CORPUSCULAR HGB CONC 34.1 G/dL (31.0-37.0); MEAN CORPUSCULAR VOLUME 92 fL (80-100); MONOCYTES # (AUTO) 0.6 K/uL (0.1-1.0); MONOCYTES % (AUTO) 8.3 % (2.0-9.0); NEUTROPHILS # (AUTO) 4.6 K/uL (1.8-7.7); NEUTROPHILS % (AUTO) 64.3 % (40.0-70.0); PLATELET COUNT (AUTO) 537 K/uL (150-450); RED BLOOD CELL COUNT(AUTO) 3.88 MIL/uL (4.00-5.20); RED CELL DISTRIBUTION WIDTH 13.5 % (11.5-14.5)
[2018-05-27 11:13] LABS: PROTHROMBIN TIME 10.6 SEC (9.4-11.6)
[2018-05-27 11:36] LABS: ANION GAP 9 mmol/L (8-16); CALCIUM, TOTAL 8.9 mg/dL (8.8-10.5); CARBON DIOXIDE 26 mmol/L (22-29); CHLORIDE 102 mmol/L (98-107); GLOMERULAR FILTR. RATE CALC > 60 mL/min (>60); GLUCOSE,RANDOM 88 mg/dL (70-110); POTASSIUM 4.1 mmol/L (3.5-5.1); SODIUM SERUM 137 mmol/L (136-145); UREA NITROGEN, BLOOD 17 mg/dL (7-18)
[2018-05-27 12:01] LABS: ALANINE AMINOTRANSFERASE 30 U/L (12-78); ALBUMIN 3.1 g/dL (3.4-5.0); ALKALINE PHOSPHATASE 94 U/L (46-116); ASPARTATE AMINOTRANSFERASE 20 U/L (15-37); BILIRUBIN,TOTAL 0.2 mg/dL (0.1-1.0); CREATINE KINASE, TOTAL 53 U/L (26-192)
[2018-05-27 12:52] LABS: APPEARANCE,URINE CLEAR (CLEAR); BILIRUBIN,URINE NEGATIVE (NEGATIVE); GLUCOSE, URINE (UA) NEGATIVE (NEGATIVE); KETONES,URINE NEGATIVE (NEGATIVE); LEUKOCYTE ESTERASE ,URINE NEGATIVE (NEGATIVE); NITRATE,URINE NEGATIVE (NEGATIVE); OCCULT BLOOD,URINE NEGATIVE (NEGATIVE); PROTEIN,URINE NEGATIVE (NEGATIVE); UROBILINOGEN,URINE 0.2 mg/dL (<=1.0)
[2018-05-27] MEDS ORDERED: PHENYTOIN SODIUM 300 MG in SODIUM CHLORIDE 0.9% 100 ML IV ONE (13:00)
[2018-05-27 14:38] VITALS: BP 138/88
== END 2018-05-27 14:39 | disposition home or self-care (01) ==
LOC: EMS 10:14
DX: G40.909 Epilepsy, unspecified, not intractable, without status epilepticus (principal); I10 Essential (primary) hypertension; E78.00 Pure hypercholesterolemia, unspecified; K21.9 Gastro-esophageal reflux disease without esophagitis
CPT/HCPCS: 36415; 71045; 80053; 80185; 81003; 82550; 83880; 84484; 85025; 85610; 85730; 93005; 96365; 99285; J1165; J7050

== ENCOUNTER 2018-11-08 10:46 | Emergency (ER) | payer MEDICAID, SELFPAY ==
[~2018-11-08] VITALS: Ht 160 cm; Wt 43.2 kg
[~2018-11-08 10:46] MED LIST changes: +FAMO20 PO; +LISI-661 PO; -LISI10TA7 PO; +NUTR237L33 PO; -PHEN125O3 PO
[2018-11-08 12:22] LABS: CALCIUM, TOTAL 8.8 mg/dL (8.8-10.5); CREATININE 1.15 mg/dL (0.60-1.30); POTASSIUM 4.4 mmol/L (3.5-5.1)
[2018-11-08 12:24] LABS: PHENYTOIN (DILANTIN) 3.3 mcg/mL (10.0-20.0)
[2018-11-08] MEDS ORDERED: PHENYTOIN 100 MG/4 ML SUSPENSION UDCUP PO ONE ×3 (12:45→17:15)
[2018-11-08] MEDS ORDERED: LORazepam 2 MG/ML VIAL ONE (12:50)
[2018-11-08] MEDS ORDERED: PHENYTOIN SODIUM 500 MG in SODIUM CHLORIDE 0.9% 100 ML IV ONE (13:00)
[2018-11-08] MEDS ORDERED: LORazepam 2 MG/ML VIAL IM ONE (13:00)
[2018-11-08 13:22] LABS: BASOPHILS % (AUTO) 1.1 % (0.0-2.0); EOSINOPHILS % (AUTO) 0.8 % (1.0-6.0); HEMATOCRIT 37.6 % (36-46); HEMOGLOBIN 12.5 g/dL (12.0-16.0); LYMPHOCYTES # (AUTO) 1.6 K/uL (1.0-4.8); LYMPHOCYTES % (AUTO) 31.4 % (22.0-44.0); MEAN CORPUSCULAR HEMOGLOBIN 31.3 pg (26.0-34.0); MEAN CORPUSCULAR HGB CONC 33.1 G/dL (31.0-37.0); MEAN CORPUSCULAR VOLUME 95 fL (80-100); MONOCYTES # (AUTO) 0.4 K/uL (0.1-1.0); NEUTROPHILS % (AUTO) 58.7 % (40.0-70.0); PLATELET COUNT (AUTO) 242 K/uL (150-450); RED BLOOD CELL COUNT(AUTO) 3.98 MIL/uL (4.00-5.20); RED CELL DISTRIBUTION WIDTH 13.8 % (11.5-14.5)
[2018-11-08] MEDS ORDERED: LevETIRAcetam 100 MG/ML 5 ML SOLUTION UDCUP PO ONE (15:15)
[2018-11-08 20:07] VITALS: BP 122/85
== END 2018-11-08 20:52 | disposition home or self-care (01) ==
LOC: EMS 10:47
DX: R56.9 Unspecified convulsions (principal); I10 Essential (primary) hypertension; E78.00 Pure hypercholesterolemia, unspecified; K21.9 Gastro-esophageal reflux disease without esophagitis; F17.210 Nicotine dependence, cigarettes, uncomplicated; Z79.82 Long term (current) use of aspirin
CPT/HCPCS: 36415; 71045; 80048; 80185; 82962; 85025; 93005; 96372; 99285; J2060; J1165; J7050

== ENCOUNTER 2019-05-21 01:44 | Emergency (ER) | payer MEDICAID ==
[~2019-05-21] VITALS: Ht 167.6 cm; Wt 61.4 kg
[~2019-05-21 01:44] MED LIST changes: +AUD NEB; -BISA10S PR; +BISA10SU11 PR; +HEPA500018 SQ; +MOM30 PO
[2019-05-21 04:25] LABS: BASOPHILS % (AUTO) 0.9 % (0.0-2.0); EOSINOPHILS % (AUTO) 0.4 % (1.0-6.0); HEMATOCRIT 41.1 % (36-46); HEMOGLOBIN 13.3 g/dL (12.0-16.0); LYMPHOCYTES # (AUTO) 1.2 K/uL (1.0-4.8); LYMPHOCYTES % (AUTO) 28.3 % (22.0-44.0); MEAN CORPUSCULAR HEMOGLOBIN 31.5 pg (26.0-34.0); MEAN CORPUSCULAR HGB CONC 32.3 G/dL (31.0-37.0); MEAN CORPUSCULAR VOLUME 97 fL (80-100); MONOCYTES # (AUTO) 0.3 K/uL (0.1-1.0); MONOCYTES % (AUTO) 7.4 % (2.0-9.0); NEUTROPHILS # (AUTO) 2.6 K/uL (1.8-7.7); PLATELET COUNT (AUTO) 255 K/uL (150-450); RED BLOOD CELL COUNT(AUTO) 4.22 MIL/uL (4.00-5.20); RED CELL DISTRIBUTION WIDTH 13.6 % (11.5-14.5)
[2019-05-21 04:44] LABS: CALCIUM, TOTAL 9.5 mg/dL (8.8-10.5); CREATININE 1.24 mg/dL (0.60-1.30); POTASSIUM 4.3 mmol/L (3.5-5.1)
[2019-05-21 04:46] LABS: ALBUMIN 3.5 g/dL (3.4-5.0); BILIRUBIN,TOTAL 0.2 mg/dL (0.1-1.0); PHENYTOIN (DILANTIN) 0.8 mcg/mL (10.0-20.0); TOTAL PROTEIN, SERUM 7.8 g/dL (6.4-8.2)
[2019-05-21] MEDS ORDERED: PHENYTOIN SODIUM 500 MG in SODIUM CHLORIDE 0.9% 100 ML IV ONE (05:00)
[2019-05-21 05:39] LABS: GLUCOSE,POINT OF CARE 82 MG/DL (70-110)
[2019-05-21 08:40] VITALS: BP 147/81
== END 2019-05-21 08:42 | disposition home or self-care (01) ==
LOC: EMS 01:46
DX: G40.909 Epilepsy, unspecified, not intractable, without status epilepticus (principal); K21.9 Gastro-esophageal reflux disease without esophagitis; E78.00 Pure hypercholesterolemia, unspecified; F20.9 Schizophrenia, unspecified; I10 Essential (primary) hypertension; Z87.891 Personal history of nicotine dependence; Z86.73 Personal history of transient ischemic attack (TIA), and cerebral infarction without residual deficits; Z79.82 Long term (current) use of aspirin; Z79.899 Other long term (current) drug therapy
CPT/HCPCS: 36415; 80053; 80185; 82962; 85025; 96365; 99283; G0482; J1165; J7050

== ENCOUNTER 2019-09-14 11:35 | Inpatient (IN) | payer MEDICAID ==
[~2019-09-14] VITALS: Ht 157.5 cm; Wt 42.6 kg
[~2019-09-14 11:35] MED LIST changes: +GABA-531 PO; +IPRA3AMP23 NEB; +LANS30 PO; +LEVE500S9 PO; -LEVE500T53 PO; -LISI-661 PO; +LORA-1000 IM; -MULT-248 PO; -NUTR237L33 PO; -PANT40TA25 PO; -PHENY100 PO
[2019-09-14] MEDS ORDERED: ENOX40DI9 SQ (12:00)
[2019-09-14 13:01] LABS: BASOPHILS % (AUTO) 0.7 % (0.0-2.0); EOSINOPHILS % (AUTO) 0.8 % (1.0-6.0); HEMATOCRIT 39.9 % (36-46); HEMOGLOBIN 13.2 g/dL (12.0-16.0); LYMPHOCYTES % (AUTO) 25.6 % (22.0-44.0); MEAN CORPUSCULAR HEMOGLOBIN 31.7 pg (26.0-34.0); MEAN CORPUSCULAR VOLUME 96 fL (80-100); MONOCYTES # (AUTO) 0.4 K/uL (0.1-1.0); MONOCYTES % (AUTO) 9.5 % (2.0-9.0); NEUTROPHILS # (AUTO) 2.6 K/uL (1.8-7.7); NEUTROPHILS % (AUTO) 63.4 % (40.0-70.0); PLATELET COUNT (AUTO) 277 K/uL (150-450); RED BLOOD CELL COUNT(AUTO) 4.16 MIL/uL (4.00-5.20); RED CELL DISTRIBUTION WIDTH 14.2 % (11.5-14.5)
[2019-09-14 13:18] LABS: LACTIC ACID 1.2 mmol/L (0.4-2.0)
[2019-09-14 13:23] LABS: CALCIUM, TOTAL 9.4 mg/dL (8.8-10.5); CREATININE 1.11 mg/dL (0.60-1.30); POTASSIUM 4.8 mmol/L (3.5-5.1)
[2019-09-14 13:47] LABS: ALBUMIN 3.8 g/dL (3.4-5.0); BILIRUBIN,TOTAL 0.4 mg/dL (0.1-1.0); MAGNESIUM 1.7 mg/dL (1.80-2.40); TOTAL PROTEIN, SERUM 7.8 g/dL (6.4-8.2)
[2019-09-14 14:02] LABS: PHENYTOIN (DILANTIN) 0.8 mcg/mL (10.0-20.0)
[2019-09-14 14:43] LABS: APPEARANCE,URINE CLOUDY (CLEAR); BILIRUBIN,URINE NEGATIVE (NEGATIVE); GLUCOSE, URINE (UA) NEGATIVE (NEGATIVE); KETONES,URINE NEGATIVE (NEGATIVE); LEUKOCYTE ESTERASE ,URINE NEGATIVE (NEGATIVE); NITRATE,URINE NEGATIVE (NEGATIVE); OCCULT BLOOD,URINE NEGATIVE (NEGATIVE); PROTEIN,URINE NEGATIVE (NEGATIVE); UROBILINOGEN,URINE 0.2 mg/dL (<=1.0)
[2019-09-14 14:55] LABS: BACTERIA,URINE None Seen /HPF (None Seen); RBC,URINE None Seen /HPF (0-2); SQUAMOUS EPITHELIAL CELL,UR Few /LPF (None Seen); WBC,URINE None Seen /HPF (0-5)
[2019-09-14] MEDS ORDERED: DOCU-275 PO (15:28)
[2019-09-14] MEDS ORDERED: MAGNESIUM SULFATE 2 GM/WATER 50 ML IV ONE (15:30)
[2019-09-14] MEDS ORDERED: ONDANSETRON HCL 4 MG/2 ML VIAL IVP PRN ×2 (15:45→16:15)
[2019-09-14] MEDS ORDERED: ACETAMINOPHEN 325 MG TABLET PO PRN ×2 (15:45→16:15)
[2019-09-14] MEDS ORDERED: 0.9% SODIUM CHLORIDE 10 ML SYRINGE IVP PRN (15:45)
[2019-09-14] MEDS ORDERED: MAGNESIUM HYDROXIDE SUSPENSION 30 ML UDCUP PO PRN (16:15)
[2019-09-14] MEDS ORDERED: SODIUM CHLORIDE 0.9% 500 ML IV ONE (16:15)
[2019-09-14] MEDS ORDERED: MORPHINE SULFATE 2 MG/ML SYRINGE IVP PRN (16:15)
[2019-09-14] MEDS ORDERED: ZOLPIDEM TARTRATE 5 MG TABLET PO PRN (16:15)
[2019-09-14] MEDS ORDERED: BISACODYL 10 MG RECTAL RECTAL SUPPOSITORY PR PRN (16:15)
[2019-09-14] MEDS ORDERED: LORazepam 2 MG/ML VIAL IM PRN (16:15)
[2019-09-14] MEDS: LevETIRAcetam 1,000 MG in DEXTROSE 5%-WATER 100 ML IV SCH (17:39)
[2019-09-14] MEDS: DOCUSATE SODIUM 100 MG CAPSULE PO SCH (21:00)
[2019-09-14 21:44] VITALS: BP 126/108
[2019-09-14] MEDS: HEPARIN SODIUM,PORCINE 5,000 UNITS/ML VIAL SQ SCH (23:51)
[2019-09-14 23:56] VITALS: BP 159/107
[2019-09-15 04:53] VITALS: BP 140/92
[2019-09-15] MEDS: LevETIRAcetam 1,000 MG in DEXTROSE 5%-WATER 100 ML IV SCH ×3 (05:30→17:43)
[2019-09-15 07:44] VITALS: BP 133/99
[2019-09-15] MEDS: HEPARIN SODIUM,PORCINE 5,000 UNITS/ML VIAL SQ SCH ×4 (08:00→19:26)
[2019-09-15] MEDS: DOCUSATE SODIUM 100 MG CAPSULE PO SCH ×2 (08:32→21:11)
[2019-09-15] MEDS: ASPIRIN 81 MG EC TABLET PO SCH (08:32)
[2019-09-15] MEDS: PANTOPRAZOLE SODIUM 40 MG DR TABLET PO SCH (08:32)
[2019-09-15 11:07] VITALS: BP 127/90
[2019-09-15] MEDS: CHOLECALCIFEROL (VIT D3) 400 UNITS TABLET PO SCH (12:37)
[2019-09-15 15:33] VITALS: BP 133/100
[2019-09-15] MEDS ORDERED: SODIUM CHLORIDE 0.9% 500 ML IV ONE (17:40)
[2019-09-15] MEDS: HYDROCODONE/ACETAMINOPHEN 5-325 MG TABLET PO PRN (18:33)
[2019-09-15 20:03] VITALS: BP 117/93
[2019-09-16 00:23] VITALS: BP 133/87
[2019-09-16 04:14] VITALS: BP 121/81
[2019-09-16 05:32] LABS: BASOPHILS % (AUTO) 0.7 % (0.0-2.0); EOSINOPHILS % (AUTO) 1.7 % (1.0-6.0); HEMOGLOBIN 12.5 g/dL (12.0-16.0); LYMPHOCYTES % (AUTO) 20.2 % (22.0-44.0); MEAN CORPUSCULAR HEMOGLOBIN 31.9 pg (26.0-34.0); MEAN CORPUSCULAR HGB CONC 33.7 G/dL (31.0-37.0); MEAN CORPUSCULAR VOLUME 95 fL (80-100); MONOCYTES # (AUTO) 0.6 K/uL (0.1-1.0); MONOCYTES % (AUTO) 11.3 % (2.0-9.0); NEUTROPHILS # (AUTO) 3.3 K/uL (1.8-7.7); NEUTROPHILS % (AUTO) 66.1 % (40.0-70.0); PLATELET COUNT (AUTO) 264 K/uL (150-450); RED CELL DISTRIBUTION WIDTH 13.8 % (11.5-14.5)
[2019-09-16] MEDS: LevETIRAcetam 1,000 MG in DEXTROSE 5%-WATER 100 ML IV SCH ×2 (05:39→17:49)
[2019-09-16 05:52] LABS: ALBUMIN 3.3 g/dL (3.4-5.0); BILIRUBIN,TOTAL 0.3 mg/dL (0.1-1.0); CALCIUM, TOTAL 8.9 mg/dL (8.8-10.5); CREATININE 1.16 mg/dL (0.60-1.30); POTASSIUM 4.4 mmol/L (3.5-5.1); TOTAL PROTEIN, SERUM 7.2 g/dL (6.4-8.2)
[2019-09-16 07:40] VITALS: BP 127/88
[2019-09-16] MEDS: PANTOPRAZOLE SODIUM 40 MG DR TABLET PO SCH (08:10)
[2019-09-16] MEDS: ASPIRIN 81 MG EC TABLET PO SCH (08:11)
[2019-09-16] MEDS: HEPARIN SODIUM,PORCINE 5,000 UNITS/ML VIAL SQ SCH ×3 (08:11→20:30)
[2019-09-16] MEDS: CHOLECALCIFEROL (VIT D3) 400 UNITS TABLET PO SCH (08:11)
[2019-09-16] MEDS: DOCUSATE SODIUM 100 MG CAPSULE PO SCH ×2 (08:11→20:27)
[2019-09-16] MEDS: HYDROCODONE/ACETAMINOPHEN 5-325 MG TABLET PO PRN ×2 (08:56→18:52)
[2019-09-16 10:46] LABS: MAGNESIUM 1.7 mg/dL (1.80-2.40)
[2019-09-16 11:30] VITALS: BP 132/92
[2019-09-16] MEDS ORDERED: LORazepam 2 MG/ML VIAL ONE (11:46)
[2019-09-16] MEDS: LORazepam 2 MG/ML VIAL IVP PRN (11:50)
[2019-09-16] MEDS ORDERED: ASPIRIN 81 MG CHEWABLE TABLET PO SCH (12:00)
[2019-09-16 15:15] VITALS: BP 139/96
[2019-09-16 20:01] VITALS: BP 126/82
[2019-09-16] MEDS ORDERED: ATORVASTATIN CALCIUM 20 MG TABLET PO SCH (21:00)
[2019-09-17 00:02] VITALS: BP 128/92
[2019-09-17 04:19] VITALS: BP 140/95
[2019-09-17] MEDS: LevETIRAcetam 1,000 MG in DEXTROSE 5%-WATER 100 ML IV SCH ×2 (04:58→17:55)
[2019-09-17 06:53] LABS: BASOPHILS % (AUTO) 1.2 % (0.0-2.0); EOSINOPHILS % (AUTO) 2.2 % (1.0-6.0); HEMATOCRIT 36.7 % (36-46); HEMOGLOBIN 12.2 g/dL (12.0-16.0); LYMPHOCYTES # (AUTO) 1.3 K/uL (1.0-4.8); LYMPHOCYTES % (AUTO) 30.8 % (22.0-44.0); MEAN CORPUSCULAR HEMOGLOBIN 31.7 pg (26.0-34.0); MEAN CORPUSCULAR HGB CONC 33.3 G/dL (31.0-37.0); MEAN CORPUSCULAR VOLUME 95 fL (80-100); MONOCYTES # (AUTO) 0.6 K/uL (0.1-1.0); MONOCYTES % (AUTO) 13.5 % (2.0-9.0); NEUTROPHILS # (AUTO) 2.3 K/uL (1.8-7.7); NEUTROPHILS % (AUTO) 52.3 % (40.0-70.0); PLATELET COUNT (AUTO) 232 K/uL (150-450); RED BLOOD CELL COUNT(AUTO) 3.85 MIL/uL (4.00-5.20); RED CELL DISTRIBUTION WIDTH 13.7 % (11.5-14.5)
[2019-09-17 07:13] LABS: BILIRUBIN,TOTAL 0.3 mg/dL (0.1-1.0); CALCIUM, TOTAL 8.6 mg/dL (8.8-10.5); CREATININE 1.22 mg/dL (0.60-1.30); POTASSIUM 4.4 mmol/L (3.5-5.1); TOTAL PROTEIN, SERUM 7.2 g/dL (6.4-8.2)
[2019-09-17 08:14] VITALS: BP 140/95
[2019-09-17] MEDS: DOCUSATE SODIUM 100 MG CAPSULE PO SCH (09:00)
[2019-09-17] MEDS: CHOLECALCIFEROL (VIT D3) 400 UNITS TABLET PO SCH (09:00)
[2019-09-17] MEDS: ASPIRIN 81 MG EC TABLET PO SCH (09:00)
[2019-09-17] MEDS: PANTOPRAZOLE SODIUM 40 MG DR TABLET PO SCH (09:00)
[2019-09-17] MEDS: HEPARIN SODIUM,PORCINE 5,000 UNITS/ML VIAL SQ SCH (09:00)
[2019-09-17] MEDS ORDERED: MAGNESIUM OXIDE 400 MG TABLET PO ONE (11:00)
[2019-09-17 11:22] VITALS: BP 124/79
[2019-09-17] MEDS: LORazepam 2 MG/ML VIAL IVP PRN (12:47)
[2019-09-17 14:56] VITALS: BP 128/71
[2019-09-17] MEDS ORDERED: ATOR20TA86 PO (18:00)
[2019-09-17] MEDS ORDERED: LEVE500T53 PO ×2 (18:01→18:10)
[2019-09-17] MEDS ORDERED: PANT40TA25 PO (18:02)
[2019-09-17] MEDS ORDERED: HYDR-4119 PO (18:04)
[2019-09-17] MEDS ORDERED: LAMO25 PO (18:06)
[2019-09-17] MEDS ORDERED: LevETIRAcetam 500 MG TABLET PO SCH (21:00)
== END 2019-09-17 20:10 | DRG 100 ==
LOC: EMS 11:38 → 5S 21:13
PROVIDERS: ADMIT Internal Medicine; ATTEND Internal Medicine
DX: G40.909 Epilepsy, unspecified, not intractable, without status epilepticus (principal); E43 Unspecified severe protein-calorie malnutrition; I69.351 Hemiplegia and hemiparesis following cerebral infarction affecting right dominant side; Z68.1 Body mass index [BMI] 19.9 or less, adult; J45.909 Unspecified asthma, uncomplicated; K21.9 Gastro-esophageal reflux disease without esophagitis; E78.00 Pure hypercholesterolemia, unspecified; F01.50 Vascular dementia, unspecified severity, without behavioral disturbance, psychotic disturbance, mood disturbance, and anxiety; F20.9 Schizophrenia, unspecified; I10 Essential (primary) hypertension; R62.7 Adult failure to thrive; Z79.82 Long term (current) use of aspirin; Z86.711 Personal history of pulmonary embolism; Z79.01 Long term (current) use of anticoagulants
CPT/HCPCS: 51701; 70450; 83605; 83735; 87040; 87081; 93005; 95816; 96365; J0712; J1644; J2060; J2270; J3475; J7040; J7060

== ENCOUNTER 2019-10-31 18:07 | Inpatient (IN) | payer MEDICAID, OTHER ==
[~2019-10-31] VITALS: Ht 154.9 cm; Wt 45.5 kg
[~2019-10-31 18:07] MED LIST changes: +ATOR20TA86 PO; +DOCU-275 PO; -DSS100 PO; -FAMO20 PO; -GABA-531 PO; +HYDR-4119 PO; +LAMO25TA25 PO; -LANS30 PO; -LEVE500S9 PO; +LEVE500T53 PO; -LORA-1000 IM; +PANT40TA25 PO
[2019-10-31] MEDS ORDERED: SODIUM CHLORIDE 0.9% 1,000 ML IV ONE (19:00)
[2019-10-31] MEDS ORDERED: ACETAMINOPHEN 1000 MG/ISO-OSM 100 ML IV ONE (19:00)
[2019-10-31 19:44] LABS: BASOPHILS % (AUTO) 0.6 % (0.0-2.0); EOSINOPHILS % (AUTO) 0.8 % (1.0-6.0); HEMOGLOBIN 13.6 g/dL (12.0-16.0); LYMPHOCYTES # (AUTO) 1.1 K/uL (1.0-4.8); LYMPHOCYTES % (AUTO) 16.9 % (22.0-44.0); MEAN CORPUSCULAR HEMOGLOBIN 31.3 pg (26.0-34.0); MEAN CORPUSCULAR HGB CONC 33.2 G/dL (31.0-37.0); MEAN CORPUSCULAR VOLUME 94 fL (80-100); MONOCYTES # (AUTO) 0.5 K/uL (0.1-1.0); MONOCYTES % (AUTO) 8.2 % (2.0-9.0); NEUTROPHILS # (AUTO) 4.9 K/uL (1.8-7.7); NEUTROPHILS % (AUTO) 73.5 % (40.0-70.0); PLATELET COUNT (AUTO) 281 K/uL (150-450); RED BLOOD CELL COUNT(AUTO) 4.35 MIL/uL (4.00-5.20); RED CELL DISTRIBUTION WIDTH 13.8 % (11.5-14.5)
[2019-10-31 19:58] LABS: ANION GAP 6 mmol/L (8-16); CALCIUM, TOTAL 9.4 mg/dL (8.8-10.5); CARBON DIOXIDE 29 mmol/L (22-29); CHLORIDE 103 mmol/L (98-107); CREATININE 1.44 mg/dL (0.60-1.30); GLOMERULAR FILTR. RATE CALC 44 mL/min (>60); GLUCOSE,RANDOM 90 mg/dL (70-110); POTASSIUM 4.8 mmol/L (3.5-5.1); SODIUM SERUM 138 mmol/L (136-145); UREA NITROGEN, BLOOD 17 mg/dL (7-18)
[2019-10-31 20:01] LABS: PROTHROMBIN TIME 10.6 SEC (9.4-11.6)
[2019-10-31 20:10] LABS: LACTIC ACID 2.1 mmol/L (0.4-2.0)
[2019-10-31 20:15] LABS: B-TYPE NATRIURETIC PEPTIDE 72 pg/mL (0-100)
[2019-10-31 20:35] LABS: ALANINE AMINOTRANSFERASE 22 U/L (12-78); ALBUMIN 3.7 g/dL (3.4-5.0); ALKALINE PHOSPHATASE 82 U/L (46-116); ASPARTATE AMINOTRANSFERASE 21 U/L (15-37); BILIRUBIN,TOTAL 0.3 mg/dL (0.1-1.0); CREATINE KINASE, TOTAL ONLY 119 U/L (26-192); TOTAL PROTEIN, SERUM 8.6 g/dL (6.4-8.2)
[2019-11-01] MEDS ORDERED: CefTRIAXone 1 GM/DEXTROSE 50 ML IV ONE
[2019-11-01] MEDS ORDERED: ONDANSETRON HCL 4 MG/2 ML VIAL IVP PRN (00:30)
[2019-11-01] MEDS ORDERED: LORazepam 2 MG/ML VIAL IVP PRN (00:30)
[2019-11-01] MEDS ORDERED: 0.9% SODIUM CHLORIDE 10 ML SYRINGE IVP PRN (00:30)
[2019-11-01] MEDS ORDERED: ZOLPIDEM TARTRATE 5 MG TABLET PO PRN (00:30)
[2019-11-01] MEDS: HEPARIN SODIUM,PORCINE 5,000 UNITS/ML VIAL SQ SCH ×3 (00:45→15:15)
[2019-11-01] MEDS ORDERED: LamoTRIgine 25 MG TABLET PO ONE (01:00)
[2019-11-01] MEDS ORDERED: MAGNESIUM SULFATE 2 GM, MVI, ADULT NO.1 WITH VIT K 10 ML, THIAMINE HCL 100 MG, FOLIC AC... IV ONE ×5 (01:00)
[2019-11-01 04:35] LABS: APPEARANCE,URINE CLEAR (CLEAR); BILIRUBIN,URINE NEGATIVE (NEGATIVE); GLUCOSE, URINE (UA) NEGATIVE (NEGATIVE); KETONES,URINE NEGATIVE (NEGATIVE); LEUKOCYTE ESTERASE ,URINE NEGATIVE (NEGATIVE); NITRATE,URINE NEGATIVE (NEGATIVE); OCCULT BLOOD,URINE NEGATIVE (NEGATIVE); PROTEIN,URINE NEGATIVE (NEGATIVE); UROBILINOGEN,URINE 0.2 mg/dL (<=1.0)
[2019-11-01 04:43] LABS: BACTERIA,URINE None Seen /HPF (None Seen); RBC,URINE 0-2 /HPF (0-2); SQUAMOUS EPITHELIAL CELL,UR Rare /LPF (None Seen); WBC,URINE 0-2 /HPF (0-5)
[2019-11-01 05:47] LABS: BASOPHILS % (AUTO) 0.8 % (0.0-2.0); EOSINOPHILS % (AUTO) 0.7 % (1.0-6.0); HEMATOCRIT 39.5 % (36-46); HEMOGLOBIN 13.1 g/dL (12.0-16.0); LYMPHOCYTES # (AUTO) 1.4 K/uL (1.0-4.8); MEAN CORPUSCULAR HEMOGLOBIN 31.6 pg (26.0-34.0); MEAN CORPUSCULAR HGB CONC 33.2 G/dL (31.0-37.0); MEAN CORPUSCULAR VOLUME 95 fL (80-100); MONOCYTES # (AUTO) 0.6 K/uL (0.1-1.0); MONOCYTES % (AUTO) 9.7 % (2.0-9.0); NEUTROPHILS # (AUTO) 3.8 K/uL (1.8-7.7); NEUTROPHILS % (AUTO) 64.8 % (40.0-70.0); PLATELET COUNT (AUTO) 260 K/uL (150-450); RED BLOOD CELL COUNT(AUTO) 4.16 MIL/uL (4.00-5.20); RED CELL DISTRIBUTION WIDTH 13.5 % (11.5-14.5)
[2019-11-01 05:58] LABS: ALBUMIN 3.3 g/dL (3.4-5.0); BILIRUBIN,TOTAL 0.3 mg/dL (0.1-1.0); CALCIUM, TOTAL 8.7 mg/dL (8.8-10.5); CREATININE 1.17 mg/dL (0.60-1.30); POTASSIUM 4.4 mmol/L (3.5-5.1); TOTAL PROTEIN, SERUM 7.9 g/dL (6.4-8.2)
[2019-11-01] MEDS: LevETIRAcetam 500 MG TABLET PO SCH (07:55)
[2019-11-01] MEDS: PANTOPRAZOLE SODIUM 40 MG DR TABLET PO SCH (07:56)
[2019-11-01] MEDS: DOCUSATE SODIUM 100 MG CAPSULE PO SCH (07:56)
[2019-11-01] MEDS: ASPIRIN 81 MG EC TABLET PO SCH (11:25)
[2019-11-01] MEDS: CHOLECALCIFEROL (VIT D3) 400 UNITS TABLET PO SCH (11:25)
[2019-11-01] MEDS: LamoTRIgine 25 MG TABLET PO SCH (11:25)
[2019-11-01] MEDS: ACETAMINOPHEN 325 MG TABLET PO PRN (11:26)
[2019-11-01 14:54] VITALS: BP 176/97
[2019-11-01 20:42] VITALS: BP 167/116
[2019-11-01] MEDS ORDERED: HydrALAZINE HCL 20 MG/ML VIAL IVP PRN (20:45)
[2019-11-01] MEDS ORDERED: AmLODIPine BESYLATE 10 MG TABLET PO ONE (20:45)
[2019-11-02] MEDS: HEPARIN SODIUM,PORCINE 5,000 UNITS/ML VIAL SQ SCH ×3 (00:45→16:50)
[2019-11-02] MEDS: LamoTRIgine 25 MG TABLET PO SCH ×3 (00:46→20:11)
[2019-11-02] MEDS: ATORVASTATIN CALCIUM 20 MG TABLET PO SCH ×2 (00:47→20:10)
[2019-11-02] MEDS: DOCUSATE SODIUM 100 MG CAPSULE PO SCH ×3 (00:47→20:10)
[2019-11-02 04:28] VITALS: BP 143/98
[2019-11-02 06:56] LABS: BASOPHILS % (AUTO) 1.1 % (0.0-2.0); EOSINOPHILS % (AUTO) 0.9 % (1.0-6.0); HEMATOCRIT 37.2 % (36-46); HEMOGLOBIN 12.5 g/dL (12.0-16.0); LYMPHOCYTES # (AUTO) 1.2 K/uL (1.0-4.8); MEAN CORPUSCULAR HEMOGLOBIN 31.3 pg (26.0-34.0); MEAN CORPUSCULAR HGB CONC 33.4 G/dL (31.0-37.0); MEAN CORPUSCULAR VOLUME 94 fL (80-100); MONOCYTES # (AUTO) 0.4 K/uL (0.1-1.0); MONOCYTES % (AUTO) 7.4 % (2.0-9.0); NEUTROPHILS # (AUTO) 3.9 K/uL (1.8-7.7); NEUTROPHILS % (AUTO) 69.6 % (40.0-70.0); PLATELET COUNT (AUTO) 296 K/uL (150-450); RED BLOOD CELL COUNT(AUTO) 3.98 MIL/uL (4.00-5.20); RED CELL DISTRIBUTION WIDTH 13.6 % (11.5-14.5)
[2019-11-02 07:15] LABS: POTASSIUM 3.5 mmol/L (3.5-5.1)
[2019-11-02 07:16] LABS: CREATININE 1.24 mg/dL (0.60-1.30); MAGNESIUM 1.9 mg/dL (1.80-2.40); PHENYTOIN (DILANTIN) 0.6 mcg/mL (10.0-20.0)
[2019-11-02 07:46] VITALS: BP 146/102
[2019-11-02] MEDS: ASPIRIN 81 MG EC TABLET PO SCH (08:23)
[2019-11-02] MEDS: PANTOPRAZOLE SODIUM 40 MG DR TABLET PO SCH (08:24)
[2019-11-02] MEDS: LevETIRAcetam 500 MG TABLET PO SCH (08:24)
[2019-11-02] MEDS: CHOLECALCIFEROL (VIT D3) 400 UNITS TABLET PO SCH (08:24)
[2019-11-02 11:14] VITALS: BP 139/100
[2019-11-02 15:04] VITALS: BP 126/71
[2019-11-02 20:31] VITALS: BP 130/85
[2019-11-02] MEDS: ACETAMINOPHEN 325 MG TABLET PO PRN (21:44)
[2019-11-02 23:48] VITALS: BP 130/84
[2019-11-03] MEDS: HEPARIN SODIUM,PORCINE 5,000 UNITS/ML VIAL SQ SCH ×2 (00:40→08:10)
[2019-11-03 04:22] VITALS: BP 144/91
[2019-11-03 07:22] VITALS: BP 147/98
[2019-11-03] MEDS: DOCUSATE SODIUM 100 MG CAPSULE PO SCH (08:08)
[2019-11-03] MEDS: ASPIRIN 81 MG EC TABLET PO SCH (08:09)
[2019-11-03] MEDS: LevETIRAcetam 500 MG TABLET PO SCH (08:09)
[2019-11-03] MEDS: LamoTRIgine 25 MG TABLET PO SCH (08:09)
[2019-11-03] MEDS: CHOLECALCIFEROL (VIT D3) 400 UNITS TABLET PO SCH (08:09)
[2019-11-03] MEDS: PANTOPRAZOLE SODIUM 40 MG DR TABLET PO SCH (08:10)
[2019-11-03 11:50] VITALS: BP 142/97
[2019-11-03] MEDS ORDERED: FAMO20 PO (15:07)
[2019-11-03] MEDS ORDERED: LevETIRAcetam 500 MG TABLET PO SCH (21:00)
== END 2019-11-03 17:20 | DRG 53 ==
LOC: EMS 18:11 → 5S 11-01 12:17
PROVIDERS: ADMIT Internal Medicine; ATTEND Internal Medicine
DX: G40.909 Epilepsy, unspecified, not intractable, without status epilepticus (principal); G93.40 Encephalopathy, unspecified; E87.2 Acidosis; F20.9 Schizophrenia, unspecified; N28.9 Disorder of kidney and ureter, unspecified; F03.90 Unspecified dementia, unspecified severity, without behavioral disturbance, psychotic disturbance, mood disturbance, and anxiety; E78.00 Pure hypercholesterolemia, unspecified; R62.7 Adult failure to thrive; K21.9 Gastro-esophageal reflux disease without esophagitis; E78.5 Hyperlipidemia, unspecified; I10 Essential (primary) hypertension; Z79.82 Long term (current) use of aspirin; Z86.73 Personal history of transient ischemic attack (TIA), and cerebral infarction without residual deficits; Z79.899 Other long term (current) drug therapy; Z68.1 Body mass index [BMI] 19.9 or less, adult; K59.00 Constipation, unspecified
CPT/HCPCS: 70450; 83605; 83735; 87040; 87081; 93005; J0131; J0360; J0696; J1644; J3411; J3475; J3490; J7030

== ENCOUNTER 2020-03-27 13:49 | Inpatient (IN) | payer MEDICAID, OTHER ==
[~2020-03-27] VITALS: Ht 165.1 cm; Wt 46.5 kg
[~2020-03-27 13:49] MED LIST changes: -AUD NEB; +CHOL400T56 PO; +FAMO20 PO; -IPRA3AMP23 NEB; -PANT40TA25 PO; -VITAD400 PO
[2020-03-27] MEDS ORDERED: MIDAZOLAM HCL 5 MG/ML VIAL ONE (13:55)
[2020-03-27] MEDS ORDERED: MIDAZOLAM HCL 2 MG/2 ML VIAL IVP ONE (14:00)
[2020-03-27] MEDS ORDERED: LevETIRAcetam 1,500 MG in DEXTROSE 5%-WATER 100 ML IV ONE (14:30)
[2020-03-27 14:42] LABS: BASOPHILS % (AUTO) 0.6 % (0.0-2.0); EOSINOPHILS % (AUTO) 1.8 % (1.0-6.0); HEMOGLOBIN 15.1 g/dL (12.0-16.0); LYMPHOCYTES # (AUTO) 1.1 K/uL (1.0-4.8); LYMPHOCYTES % (AUTO) 25.5 % (22.0-44.0); MEAN CORPUSCULAR HEMOGLOBIN 31.7 pg (26.0-34.0); MEAN CORPUSCULAR HGB CONC 33.4 G/dL (31.0-37.0); MEAN CORPUSCULAR VOLUME 95 fL (80-100); MONOCYTES # (AUTO) 0.5 K/uL (0.1-1.0); MONOCYTES % (AUTO) 11.2 % (2.0-9.0); NEUTROPHILS # (AUTO) 2.6 K/uL (1.8-7.7); NEUTROPHILS % (AUTO) 60.9 % (40.0-70.0); PLATELET COUNT (AUTO) 248 K/uL (150-450); RED BLOOD CELL COUNT(AUTO) 4.75 MIL/uL (4.00-5.20); RED CELL DISTRIBUTION WIDTH 13.8 % (11.5-14.5)
[2020-03-27 14:56] LABS: ANION GAP 10 mmol/L (8-16); CALCIUM, TOTAL 10.1 mg/dL (8.8-10.5); CARBON DIOXIDE 27 mmol/L (22-29); CHLORIDE 102 mmol/L (98-107); CREATININE 1.23 mg/dL (0.60-1.30); GLOMERULAR FILTR. RATE CALC 53 mL/min (>60); GLUCOSE,RANDOM 86 mg/dL (70-110); POTASSIUM 4.3 mmol/L (3.5-5.1); SODIUM SERUM 139 mmol/L (136-145); UREA NITROGEN, BLOOD 21 mg/dL (7-18)
[2020-03-27 15:11] LABS: ALANINE AMINOTRANSFERASE 33 U/L (12-78); ALBUMIN 4.3 g/dL (3.4-5.0); ALKALINE PHOSPHATASE 95 U/L (46-116); ASPARTATE AMINOTRANSFERASE 28 U/L (15-37); BILIRUBIN,TOTAL 0.4 mg/dL (0.1-1.0); FREE T4 (FREE THYROXINE) 1.23 ng/dL (0.76-1.46); PHENYTOIN (DILANTIN) 1.7 mcg/mL (10.0-20.0); THYROID STIMULATING HORMONE 0.01 uIU/mL (0.36-3.74); TOTAL PROTEIN, SERUM 9.5 g/dL (6.4-8.2)
[2020-03-27 15:12] LABS: INR 1.1 (0.9-1.1); PROTHROMBIN TIME 11.4 SEC (9.4-11.6)
[2020-03-27 15:40] LABS: CREATINE KINASE, TOTAL ONLY 139 U/L (26-192)
[2020-03-27 15:41] LABS: ACETAMINOPHEN < 2 mcg/mL (10-30); VALPROIC ACID < 3 mcg/mL (50-100)
[2020-03-27 16:05] LABS: SALICYLATE 1.4 mg/dL (2.8-20.0)
[2020-03-27 16:37] LABS: TROPONIN I 0.1 ng/mL (0.00-0.05)
[2020-03-27 17:51] LABS: AMPHET/METH SCREEN,URINE NEGATIVE (NEGATIVE); BARBITURATE SCREEN, URINE NEGATIVE (NEGATIVE); BENZODIAZEPINES SCREEN,URINE POSITIVE (NEGATIVE); CANNABINOID SCREEN,URINE NEGATIVE (NEGATIVE); COCAINE SCREEN,URINE NEGATIVE (NEGATIVE); METHADONE SCREEN, URINE NEGATIVE (NEGATIVE); OPIATE SCREEN,URINE NEGATIVE (NEGATIVE)
[2020-03-27 17:55] LABS: PHENCYCLIDINE SCREEN,URINE NEGATIVE (NEGATIVE)
[2020-03-27 18:03] LABS: APPEARANCE,URINE CLEAR (CLEAR); BILIRUBIN,URINE NEGATIVE (NEGATIVE); GLUCOSE, URINE (UA) NEGATIVE (NEGATIVE); KETONES,URINE NEGATIVE (NEGATIVE); LEUKOCYTE ESTERASE ,URINE NEGATIVE (NEGATIVE); NITRATE,URINE NEGATIVE (NEGATIVE); OCCULT BLOOD,URINE NEGATIVE (NEGATIVE); PROTEIN,URINE POS 1+ (NEGATIVE); UROBILINOGEN,URINE 0.2 mg/dL (<=1.0)
[2020-03-27 19:29] LABS: BACTERIA,URINE None Seen /HPF (None Seen); RBC,URINE None Seen /HPF (0-2); SQUAMOUS EPITHELIAL CELL,UR None Seen /LPF (None Seen); WBC,URINE 0-2 /HPF (0-5)
[2020-03-27] MEDS ORDERED: ONDANSETRON HCL 4 MG/2 ML VIAL IVP PRN (21:00)
[2020-03-27] MEDS ORDERED: ACETAMINOPHEN 325 MG TABLET PO PRN (21:00)
[2020-03-27] MEDS ORDERED: 0.9% SODIUM CHLORIDE 10 ML SYRINGE IVP PRN (21:00)
[2020-03-27 22:02] VITALS: BP 162/104
[2020-03-27] MEDS ORDERED: HydrALAZINE HCL 20 MG/ML VIAL IVP PRN (22:45)
[2020-03-27] MEDS ORDERED: MAGNESIUM HYDROXIDE SUSPENSION 30 ML UDCUP PO PRN (22:45)
[2020-03-27] MEDS ORDERED: BISACODYL 10 MG RECTAL RECTAL SUPPOSITORY PR PRN (22:45)
[2020-03-27] MEDS: LevETIRAcetam 500 MG TABLET PO SCH (23:36)
[2020-03-27] MEDS: ATORVASTATIN CALCIUM 20 MG TABLET PO SCH (23:36)
[2020-03-27] MEDS: LamoTRIgine 25 MG TABLET PO SCH (23:37)
[2020-03-27 23:48] VITALS: BP 169/105
[2020-03-28] VITALS (7 sets, daily range): BP systolic 118–137; BP diastolic 77–94
[2020-03-28] MEDS: HEPARIN SODIUM,PORCINE 5,000 UNITS/ML VIAL SQ SCH ×2 (08:33→20:26)
[2020-03-28] MEDS ORDERED: LORazepam 2 MG/ML VIAL IVP PRN (09:00)
[2020-03-28] MEDS: LamoTRIgine 25 MG TABLET PO SCH ×2 (19:00→20:26)
[2020-03-28] MEDS: LevETIRAcetam 500 MG TABLET PO SCH ×2 (19:00→20:26)
[2020-03-28] MEDS: FAMOTIDINE 20 MG TABLET PO SCH (19:00)
[2020-03-28] MEDS: CHOLECALCIFEROL (VIT D3) 400 UNITS [10 MCG] TABLET PO SCH (19:00)
[2020-03-28] MEDS: ASPIRIN 81 MG EC TABLET PO SCH (19:00)
[2020-03-28] MEDS: DOCUSATE SODIUM 100 MG CAPSULE PO SCH ×2 (19:00→20:26)
[2020-03-28] MEDS: ATORVASTATIN CALCIUM 20 MG TABLET PO SCH (20:26)
[2020-03-29 05:03] VITALS: BP 138/89
[2020-03-29 07:26] VITALS: BP 149/97
[2020-03-29 07:32] LABS: BASOPHILS % (AUTO) 0.7 % (0.0-2.0); EOSINOPHILS % (AUTO) 4.4 % (1.0-6.0); HEMATOCRIT 39.1 % (36-46); HEMOGLOBIN 12.9 g/dL (12.0-16.0); LYMPHOCYTES # (AUTO) 1.3 K/uL (1.0-4.8); LYMPHOCYTES % (AUTO) 25.4 % (22.0-44.0); MEAN CORPUSCULAR HEMOGLOBIN 31.3 pg (26.0-34.0); MEAN CORPUSCULAR VOLUME 95 fL (80-100); MONOCYTES # (AUTO) 0.5 K/uL (0.1-1.0); MONOCYTES % (AUTO) 10.4 % (2.0-9.0); NEUTROPHILS # (AUTO) 2.9 K/uL (1.8-7.7); NEUTROPHILS % (AUTO) 59.1 % (40.0-70.0); PLATELET COUNT (AUTO) 288 K/uL (150-450); RED BLOOD CELL COUNT(AUTO) 4.12 MIL/uL (4.00-5.20); RED CELL DISTRIBUTION WIDTH 13.5 % (11.5-14.5)
[2020-03-29 07:33] LABS: CALCIUM, TOTAL 9.9 mg/dL (8.8-10.5); CREATININE 1.26 mg/dL (0.60-1.30); POTASSIUM 4.5 mmol/L (3.5-5.1)
[2020-03-29] MEDS: CHOLECALCIFEROL (VIT D3) 400 UNITS [10 MCG] TABLET PO SCH (07:56)
[2020-03-29] MEDS: FAMOTIDINE 20 MG TABLET PO SCH (07:56)
[2020-03-29] MEDS: LevETIRAcetam 500 MG TABLET PO SCH (07:56)
[2020-03-29] MEDS: LamoTRIgine 25 MG TABLET PO SCH (07:57)
[2020-03-29] MEDS: DOCUSATE SODIUM 100 MG CAPSULE PO SCH (07:57)
[2020-03-29] MEDS: ASPIRIN 81 MG EC TABLET PO SCH (07:57)
[2020-03-29] MEDS: HEPARIN SODIUM,PORCINE 5,000 UNITS/ML VIAL SQ SCH (07:58)
[2020-03-29] MEDS ORDERED: LamoTRIgine 100 MG TABLET PO SCH (09:00)
[2020-03-29 11:45] VITALS: BP 114/72
[2020-03-29 15:39] VITALS: BP 119/86
== END 2020-03-29 17:00 | DRG 53 ==
LOC: EMS 13:52 → 5S 20:00
PROVIDERS: ADMIT Hospitalist; ATTEND Hospitalist
DX: G40.901 Epilepsy, unspecified, not intractable, with status epilepticus (principal); E05.90 Thyrotoxicosis, unspecified without thyrotoxic crisis or storm; E78.5 Hyperlipidemia, unspecified; I10 Essential (primary) hypertension; K21.9 Gastro-esophageal reflux disease without esophagitis; Z82.0 Family history of epilepsy and other diseases of the nervous system; Z86.73 Personal history of transient ischemic attack (TIA), and cerebral infarction without residual deficits
CPT/HCPCS: 70450; 83605; 84439; 84443; 87040; 87081; 92526; 92610; 93005; 99291; G0480; G0481; J0360; J0712; J1644; J2250; J7060

== ENCOUNTER 2020-06-04 23:10 | Emergency (ER) | payer OTHER ==
[~2020-06-04] VITALS: Ht 157.5 cm; Wt 42.3 kg
[~2020-06-04 23:10] MED LIST changes: +ASCO500T22 PO; +CEPH500 PO; +LACT1CAP70 PO; +LORA-1000 PO; +ZINC220C14 PO
[2020-06-05 04:24] VITALS: BP 139/89
== END 2020-06-05 05:00 | disposition home or self-care (01) ==
LOC: EMS 23:13
DX: S09.90XA Unspecified injury of head, initial encounter (principal); I10 Essential (primary) hypertension; E78.00 Pure hypercholesterolemia, unspecified; K21.9 Gastro-esophageal reflux disease without esophagitis; Z79.82 Long term (current) use of aspirin; Z79.899 Other long term (current) drug therapy; Z86.73 Personal history of transient ischemic attack (TIA), and cerebral infarction without residual deficits; W06.XXXA Fall from bed, initial encounter; Y93.89 Activity, other specified; Y92.89 Other specified places as the place of occurrence of the external cause; Y99.8 Other external cause status
CPT/HCPCS: 70450; 72125; 72170; 93005; 71045-TC

== ENCOUNTER 2022-02-10 11:43 | Emergency (ER) | payer OTHER ==
[~2022-02-10] VITALS: Ht 154.9 cm; Wt 47.0 kg
[~2022-02-10 11:43] MED LIST changes: +ASPI-1444 PO; -ASPI-556 PO; -CEPH500 PO; +DOCU-270 PO; -DOCU-275 PO; -HYDR-4119 PO; +LEVE500T20 PO; -LEVE500T53 PO
[2022-02-10] MEDS ORDERED: LAMO100 PO (12:00)
[2022-02-10] MEDS ORDERED: LevETIRAcetam 1,500 MG in DEXTROSE 5%-WATER 100 ML IV ONE (12:00)
[2022-02-10] MEDS ORDERED: DIAZ10I IM (12:00)
[2022-02-10 12:46] LABS: BASOPHILS % (AUTO) 0.7 % (0.0-2.0); EOSINOPHILS % (AUTO) 1.9 % (1.0-6.0); HEMATOCRIT 42.1 % (36-46); HEMOGLOBIN 13.9 g/dL (12.0-16.0); LYMPHOCYTES # (AUTO) 0.8 K/uL (1.0-4.8); LYMPHOCYTES % (AUTO) 18.8 % (22.0-44.0); MEAN CORPUSCULAR HEMOGLOBIN 31.7 pg (26.0-34.0); MEAN CORPUSCULAR HGB CONC 33.1 G/dL (31.0-37.0); MEAN CORPUSCULAR VOLUME 96 fL (80-100); MONOCYTES # (AUTO) 0.3 K/uL (0.1-1.0); MONOCYTES % (AUTO) 6.2 % (2.0-9.0); NEUTROPHILS % (AUTO) 72.4 % (40.0-70.0); PLATELET COUNT (AUTO) 290 K/uL (150-450); RED BLOOD CELL COUNT(AUTO) 4.39 MIL/uL (4.00-5.20); RED CELL DISTRIBUTION WIDTH 13.8 % (11.5-14.5)
[2022-02-10 12:56] LABS: CALCIUM, TOTAL 8.4 mg/dL (8.8-10.5); CREATININE 1.28 mg/dL (0.60-1.30); POTASSIUM 3.2 mmol/L (3.5-5.1)
[2022-02-10 13:03] LABS: LACTIC ACID 1.5 mmol/L (0.4-2.0)
[2022-02-10 13:10] LABS: ALBUMIN 3.8 g/dL (3.4-5.0); BILIRUBIN,TOTAL 0.4 mg/dL (0.1-1.0); TOTAL PROTEIN, SERUM 8.5 g/dL (6.4-8.2)
[2022-02-10 17:00] VITALS: BP 160/96
== END 2022-02-10 15:53 | disposition home or self-care (01) ==
LOC: EMS 11:45
DX: R56.9 Unspecified convulsions (principal); R41.82 Altered mental status, unspecified; K21.9 Gastro-esophageal reflux disease without esophagitis; E78.00 Pure hypercholesterolemia, unspecified; I10 Essential (primary) hypertension; F20.9 Schizophrenia, unspecified; Z86.73 Personal history of transient ischemic attack (TIA), and cerebral infarction without residual deficits; Z79.82 Long term (current) use of aspirin
CPT/HCPCS: 36415; 70450; 80053; 83605; 84484; 85025; 93005; 96374; 99285; J0712; J7060

== ENCOUNTER 2023-06-04 15:58 | Inpatient (IN) | payer OTHER ==
[~2023-06-04] VITALS: Ht 165.1 cm; Wt 46.5 kg
[~2023-06-04 15:58] MED LIST changes: +ATOR20TA PO; -ATOR20TA86 PO; -DOCU-270 PO; +DOCU-385 PO; -FAMO20 PO; -LACT1CAP70 PO; +LAMO-24 PO; -LAMO25TA25 PO; +MAGN-169 PO; +METO25 PO; -MOM30 PO; -ZINC220C14 PO; +ZINC50CA3 PO
[2023-06-04] MEDS ORDERED: LevETIRAcetam 750 MG in DEXTROSE 5%-WATER 100 ML IV ONE (16:45)
[2023-06-04] MEDS ORDERED: SODIUM CHLORIDE 0.9% 1,000 ML IV ONE (16:45)
[2023-06-04 17:21] LABS: BASOPHILS % (AUTO) 0.6 % (0.0-2.0); EOSINOPHILS % (AUTO) 0.9 % (1.0-6.0); HEMATOCRIT 43.3 % (36-46); HEMOGLOBIN 13.8 g/dL (12.0-16.0); LYMPHOCYTES # (AUTO) 1.5 K/uL (1.0-4.8); LYMPHOCYTES % (AUTO) 25.9 % (22.0-44.0); MEAN CORPUSCULAR HEMOGLOBIN 30.7 pg (26.0-34.0); MEAN CORPUSCULAR VOLUME 96 fL (80-100); MONOCYTES # (AUTO) 0.4 K/uL (0.1-1.0); MONOCYTES % (AUTO) 7.5 % (2.0-9.0); NEUTROPHILS # (AUTO) 3.7 K/uL (1.8-7.7); NEUTROPHILS % (AUTO) 65.1 % (40.0-70.0); PLATELET COUNT (AUTO) 280 K/uL (150-450); RED BLOOD CELL COUNT(AUTO) 4.51 MIL/uL (4.00-5.20); RED CELL DISTRIBUTION WIDTH 14.4 % (11.5-14.5)
[2023-06-04 17:27] LABS: CALCIUM, TOTAL 9.6 mg/dL (8.8-10.5); CREATININE 1.22 mg/dL (0.60-1.30); POTASSIUM 3.9 mmol/L (3.5-5.1)
[2023-06-04 17:34] LABS: INR 1.1 (0.9-1.1)
[2023-06-04 17:36] LABS: LACTIC ACID 1.5 mmol/L (0.4-2.0)
[2023-06-04 17:53] LABS: ALBUMIN 3.6 g/dL (3.4-5.0); BILIRUBIN,TOTAL 0.4 mg/dL (0.1-1.0)
[2023-06-04 19:28] LABS: APPEARANCE,URINE CLEAR (CLEAR); BILIRUBIN,URINE NEGATIVE (NEGATIVE); GLUCOSE, URINE (UA) NEGATIVE (NEGATIVE); KETONES,URINE NEGATIVE (NEGATIVE); LEUKOCYTE ESTERASE ,URINE NEGATIVE (NEGATIVE); NITRATE,URINE NEGATIVE (NEGATIVE); OCCULT BLOOD,URINE NEGATIVE (NEGATIVE); PH,URINE 5.5 (5.0-8.0); PROTEIN,URINE 30-70 mg/dL (NEGATIVE); SPECIFIC GRAVITIY, URINE 1.018 (1.003-1.030); UROBILINOGEN,URINE <=1.0 mg/dL (<=1.0)
[2023-06-04] MEDS ORDERED: LABETALOL HCL 5 MG/ML 20 ML VIAL IVP ONE (19:30)
[2023-06-04] MEDS ORDERED: BISACODYL 10 MG RECTAL RECTAL SUPPOSITORY PR PRN (20:45)
[2023-06-04] MEDS ORDERED: MAGNESIUM HYDROXIDE SUSPENSION 30 ML UDCUP PO PRN (20:45)
[2023-06-04] MEDS ORDERED: ONDANSETRON HCL 4 MG/2 ML VIAL IVP PRN (20:45)
[2023-06-04] MEDS ORDERED: ZOLPIDEM TARTRATE 5 MG TABLET PO PRN (20:45)
[2023-06-04] MEDS ORDERED: MORPHINE SULFATE 2 MG/ML SYRINGE IVP PRN (20:45)
[2023-06-04] MEDS ORDERED: ACETAMINOPHEN 325 MG TABLET PO PRN (20:45)
[2023-06-04] MEDS ORDERED: HYDROCODONE/ACETAMINOPHEN 5-325 MG TABLET PO PRN (20:45)
[2023-06-04] MEDS ORDERED: LORazepam 2 MG/ML VIAL IVP PRN (20:45)
[2023-06-04] MEDS: ATORVASTATIN CALCIUM 20 MG TABLET PO SCH (21:00)
[2023-06-04] MEDS: ZINC SULFATE 220 MG CAPSULE PO SCH (21:00)
[2023-06-04] MEDS ORDERED: LevETIRAcetam 500 MG TABLET PO SCH (21:00)
[2023-06-04] MEDS: ASCORBIC ACID 500 MG TABLET PO SCH (21:00)
[2023-06-04] MEDS: DOCUSATE SODIUM 100 MG CAPSULE PO SCH (21:00)
[2023-06-04] MEDS: METOPROLOL TARTRATE 25 MG TABLET PO SCH (21:00)
[2023-06-04] MEDS ORDERED: HydrALAZINE HCL 20 MG/ML VIAL IVP PRN (22:00)
[2023-06-04] MEDS: LevETIRAcetam 1,500 MG in DEXTROSE 5%-WATER 100 ML IV SCH (22:17)
[2023-06-05] MEDS: HEPARIN SODIUM,PORCINE 5,000 UNITS/ML VIAL SQ SCH ×4 (00:26→23:45)
[2023-06-05 00:33] VITALS: BP 157/94; PULSE 68; RESP 18; TEMP 98.1
[2023-06-05 05:28] VITALS: BP 128/97; PULSE 55; RESP 18; TEMP 97.1
[2023-06-05 06:44] LABS: BASOPHILS % (AUTO) 0.5 % (0.0-2.0); EOSINOPHILS % (AUTO) 1.8 % (1.0-6.0); HEMATOCRIT 37.7 % (36-46); HEMOGLOBIN 12.2 g/dL (12.0-16.0); LYMPHOCYTES # (AUTO) 1.4 K/uL (1.0-4.8); LYMPHOCYTES % (AUTO) 28.4 % (22.0-44.0); MEAN CORPUSCULAR HEMOGLOBIN 30.8 pg (26.0-34.0); MEAN CORPUSCULAR HGB CONC 32.4 G/dL (31.0-37.0); MEAN CORPUSCULAR VOLUME 95 fL (80-100); MONOCYTES # (AUTO) 0.5 K/uL (0.1-1.0); MONOCYTES % (AUTO) 9.9 % (2.0-9.0); NEUTROPHILS % (AUTO) 59.4 % (40.0-70.0); PLATELET COUNT (AUTO) 274 K/uL (150-450); RED BLOOD CELL COUNT(AUTO) 3.96 MIL/uL (4.00-5.20); RED CELL DISTRIBUTION WIDTH 13.9 % (11.5-14.5)
[2023-06-05 06:50] LABS: ANION GAP 12 mmol/L (8-16); CALCIUM, TOTAL 8.9 mg/dL (8.8-10.5); CARBON DIOXIDE 24 mmol/L (22-29); CHLORIDE 101 mmol/L (98-107); CREATININE 1.07 mg/dL (0.60-1.30); GLOMERULAR FILTR. RATE CALC > 60 mL/min (>60); GLUCOSE,RANDOM 81 mg/dL (70-110); POTASSIUM 3.8 mmol/L (3.5-5.1); SODIUM SERUM 137 mmol/L (136-145)
[2023-06-05 07:09] VITALS: BP 155/93; PULSE 84; RESP 17; TEMP 97.7
[2023-06-05] MEDS: PANTOPRAZOLE SODIUM 40 MG DR TABLET PO SCH (09:00)
[2023-06-05] MEDS: DOCUSATE SODIUM 100 MG CAPSULE PO SCH ×2 (09:00→20:17)
[2023-06-05] MEDS: LevETIRAcetam 1,500 MG in DEXTROSE 5%-WATER 100 ML IV SCH ×2 (09:48→22:10)
[2023-06-05 11:42] VITALS: BP 153/96; PULSE 68; RESP 18; TEMP 98.4
[2023-06-05] MEDS: ZINC SULFATE 220 MG CAPSULE PO SCH ×2 (13:03→20:18)
[2023-06-05] MEDS: CHOLECALCIFEROL (VIT D3) 400 UNITS [10 MCG] TABLET PO SCH (13:04)
[2023-06-05] MEDS: ASCORBIC ACID 500 MG TABLET PO SCH ×2 (13:04→20:20)
[2023-06-05] MEDS: METOPROLOL TARTRATE 25 MG TABLET PO SCH ×2 (13:04→20:17)
[2023-06-05] MEDS: ASPIRIN 81 MG DR TABLET PO SCH (13:04)
[2023-06-05] MEDS: LamoTRIgine 100 MG TABLET PO SCH (13:05)
[2023-06-05 15:16] VITALS: BP 159/96; PULSE 60; RESP 19; TEMP 98.4
[2023-06-05] MEDS: ATORVASTATIN CALCIUM 20 MG TABLET PO SCH (20:20)
[2023-06-05 20:57] VITALS: BP 142/94; PULSE 65; RESP 18; TEMP 97
[2023-06-06] VITALS (8 sets, daily range): BP systolic 125–153; BP diastolic 66–95; PULSE 49–75; RESP 16–19; TEMP 96.9–98.2
[2023-06-06 06:44] LABS: BASOPHILS % (AUTO) 0.7 % (0.0-2.0); EOSINOPHILS % (AUTO) 2.3 % (1.0-6.0); HEMATOCRIT 40.6 % (36-46); HEMOGLOBIN 13.4 g/dL (12.0-16.0); LYMPHOCYTES # (AUTO) 1.2 K/uL (1.0-4.8); MEAN CORPUSCULAR HEMOGLOBIN 31.6 pg (26.0-34.0); MEAN CORPUSCULAR VOLUME 96 fL (80-100); MONOCYTES # (AUTO) 0.6 K/uL (0.1-1.0); NEUTROPHILS # (AUTO) 2.4 K/uL (1.8-7.7); PLATELET COUNT (AUTO) 201 K/uL (150-450); RED BLOOD CELL COUNT(AUTO) 4.23 MIL/uL (4.00-5.20); RED CELL DISTRIBUTION WIDTH 14.1 % (11.5-14.5)
[2023-06-06 07:01] LABS: CALCIUM, TOTAL 9.4 mg/dL (8.8-10.5); CREATININE 1.14 mg/dL (0.60-1.30); POTASSIUM 4.2 mmol/L (3.5-5.1)
[2023-06-06] MEDS: ZINC SULFATE 220 MG CAPSULE PO SCH ×2 (08:49→20:20)
[2023-06-06] MEDS: DOCUSATE SODIUM 100 MG CAPSULE PO SCH ×2 (08:50→20:21)
[2023-06-06] MEDS: METOPROLOL TARTRATE 25 MG TABLET PO SCH ×2 (08:50→20:20)
[2023-06-06] MEDS: PANTOPRAZOLE SODIUM 40 MG DR TABLET PO SCH (08:50)
[2023-06-06] MEDS: CHOLECALCIFEROL (VIT D3) 400 UNITS [10 MCG] TABLET PO SCH (08:50)
[2023-06-06] MEDS: LamoTRIgine 100 MG TABLET PO SCH (08:50)
[2023-06-06] MEDS: ASPIRIN 81 MG DR TABLET PO SCH (08:51)
[2023-06-06] MEDS: ASCORBIC ACID 500 MG TABLET PO SCH ×2 (08:51→20:20)
[2023-06-06] MEDS: HEPARIN SODIUM,PORCINE 5,000 UNITS/ML VIAL SQ SCH ×3 (08:51→23:38)
[2023-06-06] MEDS: LevETIRAcetam 500 MG TABLET PO SCH ×2 (11:44→20:21)
[2023-06-06] MEDS: ATORVASTATIN CALCIUM 20 MG TABLET PO SCH (20:20)
[2023-06-07 06:12] VITALS: BP 124/81; PULSE 61; RESP 19; TEMP 98.2
[2023-06-07 08:07] VITALS: BP 140/78; PULSE 64; RESP 18; TEMP 98
[2023-06-07] MEDS: HEPARIN SODIUM,PORCINE 5,000 UNITS/ML VIAL SQ SCH ×2 (08:48→16:40)
[2023-06-07] MEDS: CHOLECALCIFEROL (VIT D3) 400 UNITS [10 MCG] TABLET PO SCH (08:51)
[2023-06-07] MEDS: LamoTRIgine 100 MG TABLET PO SCH (08:51)
[2023-06-07] MEDS: ZINC SULFATE 220 MG CAPSULE PO SCH (08:52)
[2023-06-07] MEDS: LevETIRAcetam 500 MG TABLET PO SCH (08:52)
[2023-06-07] MEDS: ASCORBIC ACID 500 MG TABLET PO SCH (08:52)
[2023-06-07] MEDS: DOCUSATE SODIUM 100 MG CAPSULE PO SCH (08:53)
[2023-06-07] MEDS: PANTOPRAZOLE SODIUM 40 MG DR TABLET PO SCH (08:53)
[2023-06-07] MEDS: METOPROLOL TARTRATE 25 MG TABLET PO SCH (08:53)
[2023-06-07] MEDS: ASPIRIN 81 MG DR TABLET PO SCH (08:54)
[2023-06-07 09:30] LABS: CALCIUM, TOTAL 9.1 mg/dL (8.8-10.5); CREATININE 1.11 mg/dL (0.60-1.30)
[2023-06-07 11:11] LABS: BASOPHILS % (AUTO) 1.1 % (0.0-2.0); EOSINOPHILS % (AUTO) 1.6 % (1.0-6.0); HEMATOCRIT 38.3 % (36-46); HEMOGLOBIN 12.7 g/dL (12.0-16.0); LYMPHOCYTES # (AUTO) 1.3 K/uL (1.0-4.8); LYMPHOCYTES % (AUTO) 24.6 % (22.0-44.0); MEAN CORPUSCULAR HEMOGLOBIN 31.7 pg (26.0-34.0); MEAN CORPUSCULAR HGB CONC 33.2 G/dL (31.0-37.0); MEAN CORPUSCULAR VOLUME 95 fL (80-100); MONOCYTES # (AUTO) 0.5 K/uL (0.1-1.0); MONOCYTES % (AUTO) 10.1 % (2.0-9.0); NEUTROPHILS # (AUTO) 3.2 K/uL (1.8-7.7); NEUTROPHILS % (AUTO) 62.6 % (40.0-70.0); PLATELET COUNT (AUTO) 273 K/uL (150-450); RED BLOOD CELL COUNT(AUTO) 4.02 MIL/uL (4.00-5.20); RED CELL DISTRIBUTION WIDTH 13.7 % (11.5-14.5)
[2023-06-07] MEDS ORDERED: PANT-31 PO (12:01)
[2023-06-07 16:13] VITALS: BP 147/81; PULSE 69; RESP 18; TEMP 98
== END 2023-06-07 18:14 | DRG 53 ==
LOC: EMS 16:01 → 5N 23:54 → 6N 06-06 17:08
PROVIDERS: ADMIT Internal Medicine; ATTEND Internal Medicine
DX: G40.909 Epilepsy, unspecified, not intractable, without status epilepticus (principal); I69.351 Hemiplegia and hemiparesis following cerebral infarction affecting right dominant side; F03.90 Unspecified dementia, unspecified severity, without behavioral disturbance, psychotic disturbance, mood disturbance, and anxiety; I10 Essential (primary) hypertension; K21.9 Gastro-esophageal reflux disease without esophagitis; R79.89 Other specified abnormal findings of blood chemistry; F20.9 Schizophrenia, unspecified; E78.00 Pure hypercholesterolemia, unspecified; I69.320 Aphasia following cerebral infarction; Z86.711 Personal history of pulmonary embolism; Z86.718 Personal history of other venous thrombosis and embolism; Z79.82 Long term (current) use of aspirin; Z79.899 Other long term (current) drug therapy
CPT/HCPCS: 51702; 70450; 71045; 80048; 80053; 81003; 82550; 83605; 84484; 85025; 85610; 85730; 87081; 92523; 92526; 92610; 93005; 99285; J0712; J1644; J2060; J2270; J3490; J7060; 36415-L1; 36415-TC

== ENCOUNTER 2023-07-28 13:09 | Inpatient (IN) | payer OTHER ==
[~2023-07-28] VITALS: Ht 154.9 cm; Wt 48.3 kg
[~2023-07-28 13:09] MED LIST changes: -BISA10SU11 PR; -DOCU-385 PO; -HEPA500018 SQ; -LORA-1000 PO; -MAGN-169 PO; +PANT-31 PO
[2023-07-28] MEDS ORDERED: NA P133E4 PR (13:46)
[2023-07-28] MEDS ORDERED: MAGN-169 PO (13:48)
[2023-07-28] MEDS ORDERED: MULT-248 PO (13:49)
[2023-07-28] MEDS ORDERED: BISA10SU61 PR (13:50)
[2023-07-28 14:00] LABS: BASOPHILS % (AUTO) 0.8 % (0.0-2.0); EOSINOPHILS % (AUTO) 1.4 % (1.0-6.0); HEMATOCRIT 39.2 % (36-46); HEMOGLOBIN 12.9 g/dL (12.0-16.0); LYMPHOCYTES # (AUTO) 1.1 K/uL (1.0-4.8); MEAN CORPUSCULAR HEMOGLOBIN 31.3 pg (26.0-34.0); MEAN CORPUSCULAR HGB CONC 32.9 G/dL (31.0-37.0); MEAN CORPUSCULAR VOLUME 95 fL (80-100); MONOCYTES # (AUTO) 0.4 K/uL (0.1-1.0); MONOCYTES % (AUTO) 8.1 % (2.0-9.0); NEUTROPHILS # (AUTO) 3.6 K/uL (1.8-7.7); NEUTROPHILS % (AUTO) 68.7 % (40.0-70.0); PLATELET COUNT (AUTO) 244 K/uL (150-450); RED BLOOD CELL COUNT(AUTO) 4.11 MIL/uL (4.00-5.20); WHITE BLOOD COUNT (AUTO) 5.2 K/uL (4.5-11.0)
[2023-07-28 14:06] LABS: CALCIUM, TOTAL 9.3 mg/dL (8.8-10.5); CREATININE 1.13 mg/dL (0.60-1.30); POTASSIUM 4.1 mmol/L (3.5-5.1)
[2023-07-28 14:12] LABS: ALBUMIN 3.4 g/dL (3.4-5.0); BILIRUBIN,TOTAL 0.5 mg/dL (0.1-1.0); TOTAL PROTEIN, SERUM 7.4 g/dL (6.4-8.2)
[2023-07-28] MEDS ORDERED: LevETIRAcetam 1,000 MG in DEXTROSE 5%-WATER 100 ML IV ONE (15:15)
[2023-07-28] MEDS ORDERED: ACETAMINOPHEN 325 MG TABLET PO PRN (15:30)
[2023-07-28] MEDS ORDERED: ONDANSETRON HCL 4 MG/2 ML VIAL IVP PRN (15:30)
[2023-07-28] MEDS ORDERED: DEXTROSE 5%-0.45% SODIUM CHL 1,000 ML IV ONE (15:30)
[2023-07-28] MEDS ORDERED: LORazepam 2 MG/ML VIAL IVP PRN (15:30)
[2023-07-28] MEDS ORDERED: BISACODYL 10 MG RECTAL RECTAL SUPPOSITORY PR PRN (15:30)
[2023-07-28 20:45] VITALS: BP 156/99; PULSE 66; RESP 18; TEMP 97.6
[2023-07-28] MEDS: DOCUSATE SODIUM 100 MG CAPSULE PO SCH (21:00)
[2023-07-28 23:50] VITALS: BP 186/111
[2023-07-29] VITALS (7 sets, daily range): BP systolic 107–166; BP diastolic 71–119; PULSE 58–96; RESP 16–20; TEMP 97.2–97.8
[2023-07-29] MEDS ORDERED: HydrALAZINE HCL 20 MG/ML VIAL IVP PRN (00:15)
[2023-07-29] MEDS: LevETIRAcetam 1,500 MG in DEXTROSE 5%-WATER 100 ML IV SCH ×2 (04:55→17:30)
[2023-07-29] MEDS: ASPIRIN 81 MG CHEWABLE TABLET PO SCH (09:00)
[2023-07-29] MEDS: DOCUSATE SODIUM 100 MG CAPSULE PO SCH ×2 (09:00→20:08)
[2023-07-29] MEDS: LamoTRIgine 100 MG TABLET PO SCH (09:00)
[2023-07-29] MEDS: ATORVASTATIN CALCIUM 20 MG TABLET PO SCH (09:00)
[2023-07-29] MEDS: PANTOPRAZOLE SODIUM 40 MG/VIAL IVP SCH (09:17)
[2023-07-29] MEDS: HEPARIN SODIUM,PORCINE 5,000 UNITS/ML VIAL SQ SCH (23:26)
[2023-07-30 02:15] VITALS: BP 148/101; PULSE 80; RESP 20; TEMP 97.9
[2023-07-30] MEDS: LevETIRAcetam 1,500 MG in DEXTROSE 5%-WATER 100 ML IV SCH ×2 (04:45→17:00)
[2023-07-30 06:06] VITALS: BP 145/99; PULSE 86; RESP 20; TEMP 97.9
[2023-07-30 07:19] VITALS: BP 148/95; PULSE 72; RESP 16; TEMP 97.4
[2023-07-30] MEDS: HEPARIN SODIUM,PORCINE 5,000 UNITS/ML VIAL SQ SCH ×2 (08:36→16:58)
[2023-07-30] MEDS: PANTOPRAZOLE SODIUM 40 MG/VIAL IVP SCH (08:36)
[2023-07-30] MEDS: ATORVASTATIN CALCIUM 20 MG TABLET PO SCH (08:37)
[2023-07-30] MEDS: LamoTRIgine 100 MG TABLET PO SCH (08:37)
[2023-07-30] MEDS: DOCUSATE SODIUM 100 MG CAPSULE PO SCH (08:37)
[2023-07-30] MEDS: ASPIRIN 81 MG CHEWABLE TABLET PO SCH (08:37)
[2023-07-30 11:22] VITALS: BP 149/105; PULSE 88; RESP 16; TEMP 97.5
[2023-07-30 16:01] VITALS: BP 136/88; PULSE 74; RESP 16; TEMP 97.7
== END 2023-07-30 18:15 | disposition home or self-care (01) | DRG 53 ==
LOC: EMS 13:12 → AHU 15:24 → 5S 21:02
PROVIDERS: ADMIT Internal Medicine; ATTEND Internal Medicine
DX: G40.909 Epilepsy, unspecified, not intractable, without status epilepticus (principal); E43 Unspecified severe protein-calorie malnutrition; F03.90 Unspecified dementia, unspecified severity, without behavioral disturbance, psychotic disturbance, mood disturbance, and anxiety; I69.351 Hemiplegia and hemiparesis following cerebral infarction affecting right dominant side; K21.9 Gastro-esophageal reflux disease without esophagitis; F20.9 Schizophrenia, unspecified; E78.00 Pure hypercholesterolemia, unspecified; I10 Essential (primary) hypertension; Z79.899 Other long term (current) drug therapy; Z68.20 Body mass index [BMI] 20.0-20.9, adult; Z79.82 Long term (current) use of aspirin; Z86.718 Personal history of other venous thrombosis and embolism; Z86.711 Personal history of pulmonary embolism
CPT/HCPCS: 70450; 71045; 80053; 80175; 83605; 85025; 87081; 92526; 92610; 93005; 99291; C9113; J0360; J0712; J1644; J7060; 36415-L1; 36415-TC

== ENCOUNTER 2023-08-23 17:03 | Inpatient (IN) | payer OTHER ==
[~2023-08-23] VITALS: Ht 170.2 cm; Wt 51.9 kg
[~2023-08-23 17:03] MED LIST changes: +BISA10SU61 PR; +MAGN-169 PO; +MULT-248 PO; +NA P133E4 PR
[2023-08-23] MEDS ORDERED: LevETIRAcetam 1,000 MG in DEXTROSE 5%-WATER 100 ML IV ONE (17:30)
[2023-08-23 17:52] LABS: BASOPHILS % (AUTO) 0.9 % (0.0-2.0); EOSINOPHILS % (AUTO) 1.5 % (1.0-6.0); HEMATOCRIT 41.2 % (36-46); HEMOGLOBIN 13.6 g/dL (12.0-16.0); LYMPHOCYTES # (AUTO) 1.4 K/uL (1.0-4.8); LYMPHOCYTES % (AUTO) 29.5 % (22.0-44.0); MEAN CORPUSCULAR HEMOGLOBIN 31.5 pg (26.0-34.0); MEAN CORPUSCULAR HGB CONC 32.9 G/dL (31.0-37.0); MEAN CORPUSCULAR VOLUME 96 fL (80-100); MONOCYTES # (AUTO) 0.3 K/uL (0.1-1.0); MONOCYTES % (AUTO) 6.4 % (2.0-9.0); NEUTROPHILS % (AUTO) 61.7 % (40.0-70.0); PLATELET COUNT (AUTO) 264 K/uL (150-450); RED CELL DISTRIBUTION WIDTH 13.8 % (11.5-14.5); WHITE BLOOD COUNT (AUTO) 4.9 K/uL (4.5-11.0)
[2023-08-23 18:04] LABS: CALCIUM, TOTAL 9.9 mg/dL (8.8-10.5); CREATININE 1.37 mg/dL (0.60-1.30); POTASSIUM 3.7 mmol/L (3.5-5.1)
[2023-08-23 18:19] LABS: ALBUMIN 3.7 g/dL (3.4-5.0); BILIRUBIN,TOTAL 0.5 mg/dL (0.1-1.0)
[2023-08-23 18:22] LABS: TROPONIN I-HIGH SENSITIVITY 138 ng/L (<51)
[2023-08-23] MEDS ORDERED: 0.9% SODIUM CHLORIDE 10 ML SYRINGE IVP PRN (19:45)
[2023-08-23] MEDS ORDERED: ACETAMINOPHEN 325 MG TABLET PO PRN ×2 (19:45→21:15)
[2023-08-23] MEDS ORDERED: ONDANSETRON HCL 4 MG/2 ML VIAL IVP PRN ×2 (19:45→21:15)
[2023-08-23 20:45] LABS: TROPONIN I-HIGH SENSITIVITY 131 ng/L (<51)
[2023-08-23 20:50] LABS: COVID AG,FIA SOURCE NASAL SWAB
[2023-08-23 21:07] LABS: SARS-COV2 (COVID) ANTIGEN,FIA Negative (Negative)
[2023-08-23] MEDS ORDERED: ALBUTEROL SULFATE 2.5 MG/0.5 ML NEB SOLUTION NEB PRN (21:15)
[2023-08-23] MEDS ORDERED: MAGNESIUM HYDROXIDE SUSPENSION 30 ML UDCUP PO PRN ×2 (21:15)
[2023-08-23] MEDS ORDERED: BISACODYL 10 MG RECTAL RECTAL SUPPOSITORY PR PRN ×2 (21:15)
[2023-08-23] MEDS ORDERED: IPRATROPIUM BROMIDE 0.5 MG/2.5 ML NEB SOLUTION NEB PRN (21:15)
[2023-08-23] MEDS ORDERED: MORPHINE SULFATE 2 MG/ML SYRINGE IVP PRN (21:15)
[2023-08-23] MEDS ORDERED: ZOLPIDEM TARTRATE 5 MG TABLET PO PRN (21:15)
[2023-08-23] MEDS ORDERED: SODIUM PHOSPHATE,MONO-DIBASIC 133 ML ENEMA PR PRN (21:15)
[2023-08-23] MEDS ORDERED: LORazepam 2 MG/ML VIAL IVP SCH (21:30)
[2023-08-23] MEDS ORDERED: LevETIRAcetam 1,500 MG in DEXTROSE 5%-WATER 100 ML IV ONE (21:30)
[2023-08-23] MEDS ORDERED: HydrALAZINE HCL 20 MG/ML VIAL IVP PRN (22:15)
[2023-08-23 23:20] VITALS: BP 154/92; PULSE 52; RESP 19; TEMP 97.6
[2023-08-23] MEDS: HEPARIN SODIUM,PORCINE 5,000 UNITS/ML VIAL SQ SCH (23:33)
[2023-08-24 03:44] VITALS: BP 145/94; PULSE 48; RESP 18; TEMP 97.8
[2023-08-24 07:45] LABS: EOSINOPHILS % (AUTO) 2.7 % (1.0-6.0); HEMATOCRIT 39.8 % (36-46); HEMOGLOBIN 13.2 g/dL (12.0-16.0); LYMPHOCYTES # (AUTO) 1.5 K/uL (1.0-4.8); LYMPHOCYTES % (AUTO) 35.2 % (22.0-44.0); MEAN CORPUSCULAR HGB CONC 33.2 G/dL (31.0-37.0); MEAN CORPUSCULAR VOLUME 96 fL (80-100); MONOCYTES # (AUTO) 0.4 K/uL (0.1-1.0); MONOCYTES % (AUTO) 10.3 % (2.0-9.0); NEUTROPHILS # (AUTO) 2.1 K/uL (1.8-7.7); NEUTROPHILS % (AUTO) 50.8 % (40.0-70.0); PLATELET COUNT (AUTO) 261 K/uL (150-450); RED BLOOD CELL COUNT(AUTO) 4.13 MIL/uL (4.00-5.20); RED CELL DISTRIBUTION WIDTH 13.8 % (11.5-14.5); WHITE BLOOD COUNT (AUTO) 4.2 K/uL (4.5-11.0)
[2023-08-24 07:46] VITALS: BP 172/99; PULSE 52; RESP 18; TEMP 97.7
[2023-08-24 08:10] LABS: ALBUMIN 3.5 g/dL (3.4-5.0); BILIRUBIN,TOTAL 0.5 mg/dL (0.1-1.0); CALCIUM, TOTAL 9.3 mg/dL (8.8-10.5); CREATININE 1.13 mg/dL (0.60-1.30); POTASSIUM 3.9 mmol/L (3.5-5.1); TOTAL PROTEIN, SERUM 7.6 g/dL (6.4-8.2)
[2023-08-24] MEDS ORDERED: PANTOPRAZOLE SODIUM 40 MG DR TABLET PO SCH (09:00)
[2023-08-24] MEDS: CHOLECALCIFEROL (VIT D3) 400 UNITS [10 MCG] TABLET PO SCH (09:00)
[2023-08-24] MEDS: ASCORBIC ACID 500 MG TABLET PO SCH ×2 (09:00→20:24)
[2023-08-24] MEDS: PANTOPRAZOLE SODIUM 40 MG/VIAL IVP SCH (09:02)
[2023-08-24] MEDS: DOCUSATE SODIUM 100 MG CAPSULE PO SCH ×2 (09:02→20:24)
[2023-08-24] MEDS: HEPARIN SODIUM,PORCINE 5,000 UNITS/ML VIAL SQ SCH ×3 (09:02→23:41)
[2023-08-24] MEDS: ASPIRIN 81 MG DR TABLET PO SCH (09:03)
[2023-08-24] MEDS: MULTIVITAMINS, THERAPEUTIC TABLET PO SCH (09:03)
[2023-08-24] MEDS: ZINC SULFATE 220 MG CAPSULE PO SCH ×2 (09:03→20:23)
[2023-08-24] MEDS: LamoTRIgine 100 MG TABLET PO SCH (09:03)
[2023-08-24] MEDS: LevETIRAcetam 500 MG TABLET PO SCH ×2 (09:04→20:23)
[2023-08-24 12:13] VITALS: BP 156/87; PULSE 54; RESP 19; TEMP 98
[2023-08-24 15:29] VITALS: BP 146/85; PULSE 57; RESP 18; TEMP 98.4
[2023-08-24 20:04] VITALS: BP 141/97; PULSE 74; RESP 18; TEMP 97.9
[2023-08-24] MEDS: ATORVASTATIN CALCIUM 20 MG TABLET PO SCH (20:24)
[2023-08-25] VITALS (7 sets, daily range): BP systolic 153–160; BP diastolic 86–110; PULSE 57–76; RESP 18–20; TEMP 97.7–98.2; O2SAT 98
[2023-08-25] MEDS: HEPARIN SODIUM,PORCINE 5,000 UNITS/ML VIAL SQ SCH ×3 (09:31→23:54)
[2023-08-25] MEDS: CHOLECALCIFEROL (VIT D3) 400 UNITS [10 MCG] TABLET PO SCH (09:32)
[2023-08-25] MEDS: DOCUSATE SODIUM 100 MG CAPSULE PO SCH ×2 (09:32→21:00)
[2023-08-25] MEDS: ZINC SULFATE 220 MG CAPSULE PO SCH ×2 (09:32→21:11)
[2023-08-25] MEDS: LamoTRIgine 100 MG TABLET PO SCH (09:32)
[2023-08-25] MEDS: PANTOPRAZOLE SODIUM 40 MG/VIAL IVP SCH (09:32)
[2023-08-25] MEDS: ASCORBIC ACID 500 MG TABLET PO SCH ×2 (09:32→22:23)
[2023-08-25] MEDS: MULTIVITAMINS, THERAPEUTIC TABLET PO SCH (09:32)
[2023-08-25] MEDS: LevETIRAcetam 500 MG TABLET PO SCH ×2 (09:32→21:11)
[2023-08-25] MEDS: ASPIRIN 81 MG DR TABLET PO SCH (09:32)
[2023-08-25] MEDS: ATORVASTATIN CALCIUM 20 MG TABLET PO SCH (21:11)
[2023-08-26] VITALS (7 sets, daily range): BP systolic 136–158; BP diastolic 76–106; PULSE 64–89; RESP 16–20; TEMP 97.5–97.9; O2SAT 100
[2023-08-26] MEDS: LevETIRAcetam 500 MG TABLET PO SCH ×3 (09:00→20:02)
[2023-08-26] MEDS: DOCUSATE SODIUM 100 MG CAPSULE PO SCH ×2 (09:00→20:02)
[2023-08-26] MEDS: PANTOPRAZOLE SODIUM 40 MG/VIAL IVP SCH (09:05)
[2023-08-26] MEDS: MULTIVITAMINS, THERAPEUTIC TABLET PO SCH (09:05)
[2023-08-26] MEDS: ZINC SULFATE 220 MG CAPSULE PO SCH ×2 (09:05→20:02)
[2023-08-26] MEDS: HEPARIN SODIUM,PORCINE 5,000 UNITS/ML VIAL SQ SCH ×3 (09:05→23:42)
[2023-08-26] MEDS: CHOLECALCIFEROL (VIT D3) 400 UNITS [10 MCG] TABLET PO SCH (09:06)
[2023-08-26] MEDS: LamoTRIgine 100 MG TABLET PO SCH (09:06)
[2023-08-26] MEDS: ASCORBIC ACID 500 MG TABLET PO SCH ×2 (09:06→20:02)
[2023-08-26] MEDS: ASPIRIN 81 MG DR TABLET PO SCH (09:06)
[2023-08-26] MEDS ORDERED: LevETIRAcetam 1,500 MG in DEXTROSE 5%-WATER 100 ML IV ONE (10:30)
[2023-08-26] MEDS ORDERED: LORazepam 2 MG/ML VIAL IVP PRN (11:15)
[2023-08-26] MEDS: ATORVASTATIN CALCIUM 20 MG TABLET PO SCH (20:02)
[2023-08-27 01:01] VITALS: BP 142/95; PULSE 75; RESP 18; TEMP 98
[2023-08-27 05:11] VITALS: BP 139/89; PULSE 79; RESP 18; TEMP 97.9
[2023-08-27 07:32] VITALS: BP 159/99; PULSE 74; RESP 18; TEMP 97.7
[2023-08-27] MEDS: CHOLECALCIFEROL (VIT D3) 400 UNITS [10 MCG] TABLET PO SCH (08:13)
[2023-08-27] MEDS: DOCUSATE SODIUM 100 MG CAPSULE PO SCH ×2 (08:13→20:19)
[2023-08-27] MEDS: ZINC SULFATE 220 MG CAPSULE PO SCH ×2 (08:13→20:20)
[2023-08-27] MEDS: LevETIRAcetam 500 MG TABLET PO SCH ×2 (08:13→20:19)
[2023-08-27] MEDS: PANTOPRAZOLE SODIUM 40 MG/VIAL IVP SCH (08:19)
[2023-08-27] MEDS: HEPARIN SODIUM,PORCINE 5,000 UNITS/ML VIAL SQ SCH ×2 (08:19→16:05)
[2023-08-27] MEDS: ASPIRIN 81 MG DR TABLET PO SCH (08:20)
[2023-08-27] MEDS: LamoTRIgine 100 MG TABLET PO SCH (08:20)
[2023-08-27] MEDS: MULTIVITAMINS, THERAPEUTIC TABLET PO SCH (08:20)
[2023-08-27] MEDS: ASCORBIC ACID 500 MG TABLET PO SCH ×2 (08:26→20:20)
[2023-08-27 12:00] VITALS: BP 159/109; PULSE 88; RESP 16; TEMP 97.9
[2023-08-27 15:45] VITALS: BP 145/93; PULSE 83; RESP 16; TEMP 98
[2023-08-27 19:35] VITALS: BP 136/90; PULSE 73; RESP 17; TEMP 98.1
[2023-08-27] MEDS: ATORVASTATIN CALCIUM 20 MG TABLET PO SCH (20:20)
[2023-08-28] VITALS: BP 146/85; PULSE 70; RESP 16; TEMP 97.7
[2023-08-28] MEDS: HEPARIN SODIUM,PORCINE 5,000 UNITS/ML VIAL SQ SCH ×3 (00:03→17:27)
[2023-08-28 04:51] VITALS: BP 152/97; PULSE 71; RESP 17; TEMP 97.9
[2023-08-28 07:19] VITALS: BP 150/101; PULSE 74; RESP 18; TEMP 97.8
[2023-08-28] MEDS: HYDROCODONE/ACETAMINOPHEN 5-325 MG TABLET PO PRN ×2 (08:35→12:37)
[2023-08-28] MEDS: MULTIVITAMINS, THERAPEUTIC TABLET PO SCH (08:35)
[2023-08-28] MEDS: LevETIRAcetam 500 MG TABLET PO SCH ×2 (08:35→20:04)
[2023-08-28] MEDS: CHOLECALCIFEROL (VIT D3) 400 UNITS [10 MCG] TABLET PO SCH (08:36)
[2023-08-28] MEDS: LamoTRIgine 100 MG TABLET PO SCH (08:36)
[2023-08-28] MEDS: ASCORBIC ACID 500 MG TABLET PO SCH ×2 (08:36→20:03)
[2023-08-28] MEDS: DOCUSATE SODIUM 100 MG CAPSULE PO SCH ×2 (08:36→20:03)
[2023-08-28] MEDS: ASPIRIN 81 MG DR TABLET PO SCH (08:36)
[2023-08-28] MEDS: ZINC SULFATE 220 MG CAPSULE PO SCH ×2 (08:36→20:04)
[2023-08-28] MEDS: PANTOPRAZOLE SODIUM 40 MG/VIAL IVP SCH (08:37)
[2023-08-28 11:27] VITALS: BP 156/81; PULSE 66; RESP 19; TEMP 97.7
[2023-08-28 14:33] LABS: BASOPHILS % (AUTO) 1.4 % (0.0-2.0); EOSINOPHILS % (AUTO) 3.1 % (1.0-6.0); HEMATOCRIT 36.9 % (36-46); HEMOGLOBIN 12.1 g/dL (12.0-16.0); LYMPHOCYTES # (AUTO) 1.3 K/uL (1.0-4.8); LYMPHOCYTES % (AUTO) 29.7 % (22.0-44.0); MEAN CORPUSCULAR HEMOGLOBIN 31.3 pg (26.0-34.0); MEAN CORPUSCULAR HGB CONC 32.9 G/dL (31.0-37.0); MEAN CORPUSCULAR VOLUME 95 fL (80-100); MONOCYTES # (AUTO) 0.4 K/uL (0.1-1.0); MONOCYTES % (AUTO) 8.5 % (2.0-9.0); NEUTROPHILS # (AUTO) 2.5 K/uL (1.8-7.7); NEUTROPHILS % (AUTO) 57.3 % (40.0-70.0); PLATELET COUNT (AUTO) 266 K/uL (150-450); RED BLOOD CELL COUNT(AUTO) 3.87 MIL/uL (4.00-5.20); RED CELL DISTRIBUTION WIDTH 14.1 % (11.5-14.5); WHITE BLOOD COUNT (AUTO) 4.4 K/uL (4.5-11.0)
[2023-08-28 14:45] LABS: CALCIUM, TOTAL 9.3 mg/dL (8.8-10.5); CREATININE 1.34 mg/dL (0.60-1.30)
[2023-08-28 16:17] VITALS: BP 144/92; PULSE 78; RESP 18; TEMP 98
[2023-08-28] MEDS ORDERED: DOCU-385 PO (18:09)
[2023-08-28] MEDS ORDERED: HEPA500018 SQ (18:10)
[2023-08-28] MEDS ORDERED: ZINC50CA3 PO (18:11)
[2023-08-28] MEDS ORDERED: ALBU2.5V39 NEB (18:12)
[2023-08-28] MEDS ORDERED: HYDR-4723 PO (18:13)
[2023-08-28 19:25] VITALS: BP 148/101; PULSE 68; RESP 20; TEMP 98.4
[2023-08-28] MEDS: ATORVASTATIN CALCIUM 20 MG TABLET PO SCH (20:04)
== END 2023-08-28 20:52 | DRG 53 ==
LOC: EMS 17:04 → 5S 21:59 → 6S 08-28 14:22
PROVIDERS: ADMIT Hospitalist; ATTEND Hospitalist
DX: G40.109 Localization-related (focal) (partial) symptomatic epilepsy and epileptic syndromes with simple partial seizures, not intractable, without status epilepticus (principal); I69.351 Hemiplegia and hemiparesis following cerebral infarction affecting right dominant side; R79.89 Other specified abnormal findings of blood chemistry; Z20.822 Contact with and (suspected) exposure to COVID-19; I10 Essential (primary) hypertension; F20.9 Schizophrenia, unspecified; E78.00 Pure hypercholesterolemia, unspecified; K21.9 Gastro-esophageal reflux disease without esophagitis; F03.93 Unspecified dementia, unspecified severity, with mood disturbance; R62.7 Adult failure to thrive; Z68.1 Body mass index [BMI] 19.9 or less, adult; Z79.899 Other long term (current) drug therapy; Z86.718 Personal history of other venous thrombosis and embolism; Z86.711 Personal history of pulmonary embolism
CPT/HCPCS: 70450; 80048; 80053; 82550; 83880; 84484; 85025; 87081; 93005; 99285; C9113; J0712; J1644; J7060